=== PATIENT | female | born 1960 | race Caucasian/White ===

== ENCOUNTER → 2017-04-25 | Day surgery (SDC) | payer OTHER ==
[2017-04-23 09:18] VITALS: Ht 170.2 cm; Wt 72.7 kg
--- NOTE | 2017-04-24 15:19 | History and Physical: Surg Cnt ---
History & Physical Date Apr 24, 2017. Chief Complaint sinus infections History of Present Illness The patient is a 56 year old female with complaints of chronic sinusitis Additional History Hepatic Disease: No Endocrine Disorder: No Kidney Disease: No Hypertension: No Heart Disease: No Bleeding Tendencies: No Infectious Diseases: No Allergies Coded Allergies: Penicillins (Verified Allergy, Unknown, SWELLING, 04/23/17) Sulfa Antibiotics (Verified Allergy, Unknown, HIVES, 04/23/17) Adhesives (Verified Adverse Reaction, Unknown, REDNESS AND ITCHING, ) Hydrochlorothiazide (Unverified Adverse Reaction, Unknown, LOWERS SODIUM LEVELS, 04/23/17) Ibuprofen (Unverified Adverse Reaction, Unknown, CANNOT TAKE R/T GASTRIC BYPASS, 04/23/17) Home Medications Scheduled Aripiprazole (Abilify), 1 TAB PO HS Ascorbic Acid (Vitamin C), 1 TAB PO QAM B-Complex W/ Folic Acid (B Complex), 1 TAB PO DAILY Benztropine Mesylate (Cogentin), 1 MG PO HS Calcium Carbonate-Vitamin D (Calcium + D), 1 TAB PO DAILY Doxepin (Sinequan), 25 MG PO TID Duloxetine HCl (Cymbalta), 1 CAP PO HS Duloxetine Hcl (Cymbalta), 60 MG PO QAM Ferrous Sulfate (Iron), 1 TAB PO DAILY Fluticasone Propionate (Nasal) (Flonase Allergy Relief), 1 SPRAY TOMMY DAILY Gabapentin (Neurontin), 100 MG PO QID Hydroxyzine Pamoate (Vistaril), 1 CAP PO TID Lansoprazole (Prevacid), 30 MG PO QAM Levothyroxine Sodium (Synthroid), 50 MCG PO QAM Pediatric Multiple Vitamin W/ (Childrens Chewable Vitamin), 1 CHW PO DAILY Polyethylene Glycol-Propylene (Systane), 1 DROPS OP BID Primidone (Mysoline), 50 MG PO BID Ranitidine (Zantac), 300 MG PO HS Saline (Saline Nasal Clarinda), 1 SPRAY TOMMY DAILY Vortioxetine HBr (Trintellix), 1 TAB PO HS Scheduled PRN Albuterol Hfa (Ventolin Hfa), 2-4 PUFFS INH Q6H PRN for SOB/Wheezing Diphenoxylate/Atropine (Lomotil), 1 TAB PO UD PRN for Diarrhea Docusate Sodium (Colace), 1 CAP PO BID PRN for Constipation Physical Examination Skin: warm/dry, no rash Eyes: normal inspection, EOMI, sclerae normal ENT: normal ENT inspection, pharynx normal Head: normocephalic, atraumatic Neck: supple, no adenopathy, trachea midline Respiratory/Chest: lungs clear, normal breath sounds, no respiratory distress Cardiovascular: regular rate, rhythm, no edema, no murmur Abdomen / GI: normal bowel sounds, non tender Back: normal inspection Extremities: normal inspection, normal range of motion Neurologic/Psych: no motor/sensory deficits, alert, normal reflexes, oriented x 3 Diagnosis chronic sinusitis Plan of Treatment endoscopic sinus surgery
[~2017-04-25] VITALS: Ht 170.2 cm; Wt 72.7 kg
[~2017-04-25] MED LIST: ABL10 PO; ASCO100T4 PO; ATROPINE SULFATE 0.1 MG/ML 5ML SYR IV PRN; B-COTAB53 PO; BACITRACIN OINT 15 GM TUBE ONE; BENZ-89 PO; CALC600T9 PO; CEFAZOLIN 1000MG IV PUSH 5 ML IV SCH; DEXAMETHASONE SOD INJ 4 MG/ML VIAL ONE; DIPH-416 PO; DOCU-94 PO; DULO-24 PO; DULO60CA44 PO; EpHEDrine SULFATE INJ 50 MG/ML AMP IV PRN; EpINEphrine INJ 1MG/ML AMP 1 MG/ML AMP ONE; FENTANYL CITRATE INJ 50 MCG/1 ML 2 ML VIAL IV PRN; FENTANYL CITRATE INJ 50 MCG/1 ML 2 ML VIAL ONE; FERR1TAB23 PO; FLUT0.15 NAE; GABA-112 PO; GELATIN SPONGE 12-7MM ONE; HYDR50CA PO; LACTATED RINGER'S 1000ML 1,000 ML IV SCH; LANS30CA12 PO; LEVO50TA PO; LIDO 2%/EPINEPHRINE 1:100000 20 ML VIAL INFIL ONE; LIDOCAINE 4% MPF SOAK 5 ML = 1 DOSE TOP ONE; LIDOCAINE HCL 2% 2 ML VIAL (20MG/ML) ONE; MIDAZOLAM HCL 1 MG/ML 2ML VIAL ONE; ONDA4TAB65 PO; ONDANSETRON INJ 2 MG/ML 2 ML VIAL ONE; OXYC-57 PO; OXYCODONE/ACETAMINOPHEN 5-325 TAB PO PRN; PEDICHW19 PO; POLYSOL4 OP; PRIM50TA29 PO; PROPOFOL IV EMULSION 10 MG/ML 20 ML VIAL IV ONE; RANI300T2 PO; SALI1SPR3 NAE; SNQ/25 PO; SODIUM CHLORIDE 0.9% 1000ML 1,000 ML IV SCH; VNTHFA/IN INH; VORT1TAB3 PO
--- NOTE | 2017-04-25 08:28 | Discharge Instructions-SurgCtr ---
Discharge Instructions Date of Service Apr 25, 2017. Visit Reason for Visit: Chronic Tonsilitis Discharge Discharge Diagnosis / Problem: same Discharge Goals Goal(s): Improve disease control Medications Stopped Medications Name(s): ibuprofen stopped. last dose on saturday. Activity Recommendations Activity Limitations: resume your previous activity Anesthesia . Post Anesthesia Instructions: If you have had General Anesthesia or IV Sedation: * Do not drive today. * Resume driving when surgeon permits. * Do not make important decisions or sign legal documents today. * Call surgeon for: 1. Temperature elevations greater than 101 degrees F. 2. Uncontrollable pain. 3. Excessive bleeding. 4. Persistent nausea and vomiting. 5. Medication intolerance (nausea, vomiting or rash). * For nausea and vomiting use only clear liquids such as: tea, soda, bouillon until nausea subsides, then gradually increase diet as tolerated. * If you have any concerns or questions, call your surgeon's office. If physician is unavailable and it is an emergency, call 911 or go to the nearest emergency room. . Instructions / Follow-Up Instructions / Follow-Up ACTIVITY RECOMMENDATIONS: * Being up and around is good, but no strenuous activity, heavy lifting or physical exertion for one week. * Keep your head elevated 30 degrees when lying down or sleeping. * Do not blow your nose for 48 hours, sniff back instead. * Avoid hot showers. OVER THE COUNTER MEDICATIONS: * You may use Tylenol * Avoid aspirin or aspirin containing products, e.g. as they may increase bleeding. SPECIAL CARE INSTRUCTIONS: * Expect to have bloody drainage from your nose and/or down your throat for one to three days. Change drip pad as needed. * Begin irrigating your nose with saline solution today, at least six to ten times per day and sniff back to help remove old clots or crust. * You may experience nasal and facial congestion, pain and pressure, this is normal. * Please call with any significant and/or progressive pain, redness, swelling around the eyes, visual changes, fever of 101.5 degrees F, active bleeding or any problems or concerns. * If active bleeding occurs, spray the nose three times at one minute intervals with Afrin spray and call or cell phone: . If unable to reach the doctor, go to the nearest Emergency Department. Special Diet: * Avoid extremely hot fluids. FOLLOW UP VISIT: Follow-up Visit with Dr. Shah If not already scheduled, please call to schedule. Diet Recommendations Home Diet: no limitations Pending Studies Studies pending at discharge: no Medical Emergencies . Who to Call and When: Medical Emergencies: If at any time you feel your situation is an emergency, please call 911 immediately. . Non-Emergent Contact Non-Emergency issues call your: Primary Care Provider . . "Provider Documentation" section prepared by Amber Shah. . [place] Drug Monitoring Program Search Results: no issues identified
--- NOTE | 2017-04-25 08:50 | History & Physical Bridge Note ---
H&P Re-Evaluation Bridge Note: I have examined the patient, reviewed the History & Physical and in the interval since the performance of the History & Physical I have noted the following changes of clinical significance: No changes noted
--- NOTE | 2017-04-25 09:55 | [facility] Post Operative Brief Note ---
Immediate Operative Summary Operative Date Apr 25, 2017. Pre-Operative Diagnosis Chronic Sinusitis Post-Operative Diagnosis Same; Deviated Septum Procedure(s) Performed Endoscopic Sinus Surgery with [employer] Navigation, Right and Left Frontal Sinus , Right and Left Total Ethmoidectomies, Right and Left Maxillary; Septoplasty Surgeon Dr. Shah Managed Care Liaison Surgeon(s) None Estimated Blood Loss 30 mL Findings sinusitis Specimens A. Left Maxillary Sinus Mucosa B. Right Maxillary Sinus Mucosa Anesthesia GET Complication(s) None Disposition Recovery Room / PACU
--- NOTE | 2017-04-25 10:30 | Anesthesia Progress Nt - [facility] ---
Anesthesia Post Op Note Date & Time Apr 25, 2017 at 10:30 Vital Signs Pain Intensity: 0 Vital Signs Past 12 Hours Date Time Temp Pulse Resp B/P (MAP) Pulse Ox O2 Delivery O2 Flow Rate FiO2 04/25/17 10:01 36.4 93 16 148/96 100 Diffusion Mask 5 04/25/17 08:03 36.9 91 18 144/88 (106) 96 Room Air Notes Mental Status: alert / awake / arousable, participated in evaluation Pt Amnestic to Procedure: Yes Nausea / Vomiting: adequately controlled Pain: adequately controlled Airway Patency, RR, SpO2: stable & adequate BP & HR: stable & adequate Hydration State: stable & adequate Anesthetic Complications: no major complications apparent
[2017-04-25 10:46] VITALS: TEMP 36.7
--- NOTE | 2017-04-25 10:48 | OPERATIVE REPORT ---
DATE OF OPERATION: 04/25/2017 PREOPERATIVE DIAGNOSIS: Chronic sinusitis. POSTOPERATIVE DIAGNOSES: Same plus septal spur to the left. PROCEDURE: Right and left frontal sinusotomy, right and left total ethmoidectomy, right and left maxillary sinus antrostomy with endoscopic septoplasty. SURGEON: Dr. Shah. ANESTHESIA: General endotracheal. COMPLICATIONS: None. BLOOD LOSS: 30 mL. HISTORY: A 56-year-old lady who had endoscopic surgery by hi 8 years ago, did well until the last 2 years when she again developed recurrent chronic sinusitis. She is a chronic smoker. OPERATION AND FINDINGS: PROCEDURE: The patient brought to the operating room and placed in supine position. General endotracheal anesthesia was induced, prepped, draped in usual sterile manner. Nose decongested using cottonoids with topical solution of 4 mL of 4% Xylocaine mixed with 1 mL of epinephrine. Injection of 2% Xylocaine with 1:100,000 strength epinephrine was also used. The left nasofrontal duct was cannulated with guidewire and dilated using the 6 mm balloon with [employer] computer guidance. The guidewire was left in place as a marker. The frontal sinus was stenotic. Frontal sinusotomy was performed using the shaver coupled with the Qwilt device opening up the residual agger nasi cell, opening up the posterior wall of the residual agger nasi cell and then opening up the nasal frontal duct. The residual ethmoid air cells were also opened. The maxillary sinus was previously ballooned open; however, there was an accessory ostia just posterior to this by approximately less than 1 cm. Therefore, the natural ostia was connected to this accessory ostia using the biting type Blakesley forceps and also using the shaver coupled with the [employer] device. The right frontal sinusotomy, total ethmoidectomy, and maxillary sinus antrostomy performed in a similar manner. Endoscopic septoplasty was performed because of a large bony spur projecting to the left blocking the ostiomeatal complex. The incision was made over the spur using the 15 blade. Superior and inferior tunnels were elevated and then bilateral posterior tunnels were elevated around the bony spur which was removed using the Pine dissector and the Lorene forceps. The Propel stents were placed into the nasofrontal ducts and the septum was packed with a single piece of Gelfoam. The patient tolerated the procedure well and was taken to the recovery area in satisfactory condition. I attest to the content of the Intraoperative Record and any orders documented therein. Any exception s are noted below.
[2017-04-25 11:17] VITALS: BP 153/87; PULSE 90; O2SAT 97
== END | disposition home or self-care (01) ==
LOC: X.SURG 07:40
PROVIDERS: ATTEND Otolaryngology
DX: J32.9 Chronic sinusitis, unspecified (principal); J34.89 Other specified disorders of nose and nasal sinuses; I10 Essential (primary) hypertension; E78.5 Hyperlipidemia, unspecified; K21.9 Gastro-esophageal reflux disease without esophagitis; E03.9 Hypothyroidism, unspecified; I34.1 Nonrheumatic mitral (valve) prolapse; M19.90 Unspecified osteoarthritis, unspecified site; F41.9 Anxiety disorder, unspecified; Z85.3 Personal history of malignant neoplasm of breast; Z79.899 Other long term (current) drug therapy; F17.200 Nicotine dependence, unspecified, uncomplicated

== ENCOUNTER 2023-08-27 09:20 | Inpatient (IN) ==
--- NOTE | 2023-08-12 12:49 | PAT Medication Instructions ---
Medication Instructions Date of Service August 12, 2023 Home Medications Medication Instructions Recorded cyclosporine 0.05 % eye drops in a 1 drp ophthalmic (eye) Q12H #60 ea 11/19/22 dropperette (Restasis) naltrexone microspheres 380 mg 380 mg IM .COMPLEX #1 ea 11/19/22 intramuscular suspension,extended release (Vivitrol) propylene glycol-glycerin 0.6 1 drp ophthalmic (eye) QID #30 ea 11/19/22 %-0.6 % eye drops in a dropperette (Soothe Lubricant) primidone 50 mg tablet 50 mg PO BID #180 tabs 02/15/23 famotidine 20 mg tablet (Pepcid) 20 mg PO BID #60 tabs 04/30/23 lansoprazole 30 mg capsule,delayed 30 mg PO BID #60 caps 04/30/23 release (Prevacid) levothyroxine 75 mcg capsule 75 mcg PO QAM #30 caps 04/30/23 hydralazine 25 mg tablet 25 mg PO TID #270 tabs 06/18/23 budesonide-formoterol HFA 80 2 puff inhalation Q12H #10.2 grams 07/11/23 mcg-4.5 mcg/actuation aerosol inhaler (Symbicort) gabapentin 100 mg capsule 200 mg (2 x 100 mg) PO TID #180 08/01/23 caps Medication List: Budesonide 0.05% With Saline 1 spray intranasal HS acetaminophen 650 mg tablet,extended release (Tylenol Arthritis Pain) 1,300 mg PO TID PRN Pain albuterol sulfate 90 mcg/actuation aerosol inhaler 2 puff inhalation QID PRN Wheezing azelastine 205.5 mcg (0.15 %) nasal spray 2 spray intranasal BID calcium citrate 250 mg calcium-vitamin D3 5 mcg (200 unit) tablet 1 tab PO BID cholecalciferol (vitamin D3) 50 mcg (2,000 unit) capsule (Vitamin D3) 50 mcg PO QAM diphenhydramine HCl 25 mg capsule (Benadryl) 25 mg PO HS PRN Sleep doxepin 25 mg capsule 25 mg PO TID duloxetine 60 mg capsule,delayed release 60 mg PO QAM hydroxyzine HCl 50 mg tablet 50 mg PO TID linaclotide 145 mcg capsule (Linzess) 145 mcg PO QPM PRN Constipation mirtazapine 30 mg tablet 30 mg PO HS vitamin B complex 1 cap PO QAM vortioxetine 20 mg tablet (Trintellix) 20 mg PO HS cyclosporine 0.05 % eye drops in a dropperette (Restasis) 1 drp ophthalmic (eye) Q12H naltrexone microspheres 380 mg intramuscular suspension,extended release (Vivitrol) 380 mg IM .COMPLEX propylene glycol-glycerin 0.6 %-0.6 % eye drops in a dropperette (Soothe Lubricant) 1 drp ophthalmic (eye) QID biotin 1 mg capsule 1 mg PO QAM primidone 50 mg tablet 50 mg PO BID famotidine 20 mg tablet (Pepcid) 20 mg PO BID lansoprazole 30 mg capsule,delayed release (Prevacid) 30 mg PO BID levothyroxine 75 mcg capsule 75 mcg PO QAM hydralazine 25 mg tablet 25 mg PO TID aspirin 81 mg tablet 81 mg PO QAM atorvastatin 40 mg tablet (Lipitor) 40 mg PO QPM budesonide-formoterol HFA 80 mcg-4.5 mcg/actuation aerosol inhaler (Symbicort) 2 puff inhalation Q12H gabapentin 100 mg capsule 200 mg (2 x 100 mg) PO TID amlodipine 5 mg tablet 10 mg PO QAM ibuprofen 200 mg capsule 400 mg PO TID severe back pain lisinopril 40 mg tablet 40 mg PO QAM loratadine 10 mg tablet 10 mg PO QAM metoprolol succinate 25 mg tablet,extended release 24 hr 50 mg PO HS MEDICATION INSTRUCTIONS: Continue as directed Budesonide 0.05% With Saline 1 spray intranasal HS albuterol sulfate 90 mcg/actuation aerosol inhaler 2 puff inhalation QID PRN Wheezing (use if needed AM of surgery; BRING TO HOSPITAL) azelastine 205.5 mcg (0.15 %) nasal spray 2 spray intranasal BID budesonide-formoterol HFA 80 mcg-4.5 mcg/actuation aerosol inhaler (Symbicort) 2 puff inhalation Q12H naltrexone microspheres 380 mg intramuscular suspension,extended release (Vivitrol) 380 mg IM .COMPLEX propylene glycol-glycerin 0.6 %-0.6 % eye drops in a dropperette (Soothe Jennifer bricant) 1 drp ophthalmic (eye) QID cyclosporine 0.05 % eye drops in a dropperette (Restasis) 1 drp ophthalmic (eye) Q12H ASK your surgeon for instructions ibuprofen 200 mg capsule 400 mg PO TID severe back pain ASK your prescriber and surgeon aspirin 81 mg tablet 81 mg PO QAM STOP taking 2 weeks before surgery biotin 1 mg capsule 1 mg PO QAM DO NOT take the morning of surgery cholecalciferol (vitamin D3) 50 mcg (2,000 unit) capsule (Vitamin D3) 50 mcg PO QAM vitamin B complex 1 cap PO QAM lisinopril 40 mg tablet 40 mg PO QAM loratadine 10 mg tablet 10 mg PO QAM hydroxyzine HCl 50 mg tablet 50 mg PO TID calcium citrate 250 mg calcium-vitamin D3 5 mcg (200 unit) tablet 1 tab PO BID Take morning of surgery With a small sip of water, OTHERWISE NOTHING TO EAT OR DRINK AFTER MIDNIGHT: gabapentin 100 mg capsule 200 mg (2 x 100 mg) PO TID hydralazine 25 mg tablet 25 mg PO TID famotidine 20 mg tablet (Pepcid) 20 mg PO BID lansoprazole 30 mg capsule,delayed release (Prevacid) 30 mg PO BID acetaminophen 650 mg tablet,extended release (Tylenol Arthritis Pain) 1,300 mg PO TID PRN Pain (take if needed) levothyroxine 75 mcg capsule 75 mcg PO QAM amlodipine 5 mg tablet 10 mg PO QAM primidone 50 mg tablet 50 mg PO BID duloxetine 60 mg capsule,delayed release 60 mg PO QAM doxepin 25 mg capsule 25 mg PO TID Take evening before surgery atorvastatin 40 mg tablet (Lipitor) 40 mg PO QPM mirtazapine 30 mg tablet 30 mg PO HS vortioxetine 20 mg tablet (Trintellix) 20 mg PO HS metoprolol succinate 25 mg tablet,extended release 24 hr 50 mg PO HS gabapentin 100 mg capsule 200 mg (2 x 100 mg) PO TID hydralazine 25 mg tablet 25 mg PO TID famotidine 20 mg tablet (Pepcid) 20 mg PO BID lansoprazole 30 mg capsule,delayed release (Prevacid) 30 mg PO BID acetaminophen 650 mg tablet,extended release (Tylenol Arthritis Pain) 1,300 mg PO TID PRN Pain hydroxyzine HCl 50 mg tablet 50 mg PO TID calcium citrate 250 mg calcium-vitamin D3 5 mcg (200 unit) tablet 1 tab PO BID diphenhydramine HCl 25 mg capsule (Benadryl) 25 mg PO HS PRN Sleep linaclotide 145 mcg capsule (Linzess) 145 mcg PO QPM PRN Constipation primidone 50 mg tablet 50 mg PO BID doxepin 25 mg capsule 25 mg PO TID Other Notes If you have any questions please call us at [phone] or [phone] or [phone] or [phone]
--- NOTE | 2023-08-19 14:20 | Anesthesiology Consultation ---
Date of Service August 19, 2023 Assessment & Plan (1) Encounter for pre-operative examination: Chart Review Chart Review: Acceptable Risk for Surgery (pending cardio and PCP clearance ) and Patient seen in Pre Admission Testing - Awaiting cardio clearance 08/21/23 ([facility]) - Awaiting final PCP clearance ([place])- PCP awaiting preop testing and cardio clearance - workload note send to PCP (PCP awaiting cardio clearance 08/21/23) Positive antibodies on T&S- did speak with Blood Bank 08/20/23- recommended brining patient in an extra 1-2 hours early to do DOS T&S. OR informed/aware. - Check BSG AM DOS Right limb restriction Per PAT appt on 08/19/23, no recent illness/disease exposures, illness related symptoms, or recent illness/disease positive tests. Will leave to surgeon's discretion if preop Covid testing needed Patient seen by PCP 08/15/23= Patient seen for preop physical examination. Having PAT testing 08/19/23. Patient should keep cardiac clearance appt scheduled as well . Medical clearance pending normal testing and cardiac clearance. HTN- well controlled. Pt did see vascular surgery 06/25/23 and no evidence of LARA on duplex. Right index finger metacarpophalangeal arthroplasty 11/09/21= Done under [facility] with LMA #4 unique. Teaching & Discussion Pre-Anesthesia Teaching/Discussion Notes: Instructed NPO after midnight before surgery,except medications with 15 cc of water. Medication instructions provided according to the PAT guidelines. History Surgery Operation Date: 08/27/23 11:05 Proposed Procedures p L5-S1 Decompression and Fusion, Spinal Cord Monitoring - Tino Soni, Height/Weight Height: 5 ft 7 in Weight: 63.5 kg Allergies Allergy/AdvReac Type Severity Reaction Status Date / Time Penicillins Allergy Unknown SWELLING Verified 08/15/23 12:54 Sulfa (Sulfonamide Allergy Unknown HIVES Verified 08/15/23 12:54 Antibiotics) adhesive AdvReac Unknown REDNESS Verified 08/15/23 12:54 AND ITCHING hydrochlorothiazide AdvReac Unknown LOWERS Verified 08/15/23 12:54 SODIUM LEVELS ibuprofen AdvReac Unknown CANNOT Verified 08/15/23 12:54 TAKE R/T GASTRIC BYPASS Medications Home Medications Medication Instructions Recorded Confirmed Last Taken Budesonide 0.05% With Saline 1 spray intranasal HS 10/11/21 08/15/23 11/09/21 02:45 acetaminophen 650 mg 1,300 mg PO TID PRN Pain 10/11/21 08/15/23 11/08/21 10:00 tablet,extended release (Tylenol Arthritis Pain) albuterol sulfate 90 mcg/actuation 2 puff inhalation QID PRN Wheezing 10/11/21 08/15/23 11/09/21 02:45 aerosol inhaler azelastine 205.5 mcg (0.15 %) 2 spray intranasal BID 10/11/21 08/15/23 11/09/21 02:45 nasal spray cholecalciferol (vitamin D3) 50 50 mcg PO QAM 10/11/21 08/15/23 11/08/21 08:00 mcg (2,000 unit) capsule (Vitamin D3) diphenhydramine HCl 25 mg capsule 25 mg PO HS PRN Sleep 10/11/21 08/15/23 11/08/21 19:00 (Benadryl) doxepin 25 mg capsule 25 mg PO TID 10/11/21 08/15/23 11/09/21 02:45 duloxetine 60 mg capsule,delayed 60 mg PO QAM 10/11/21 08/15/23 11/09/21 02:45 release hydroxyzine HCl 50 mg tablet 50 mg PO TID 10/11/21 08/15/23 11/08/21 19:00 linaclotide 145 mcg capsule 145 mcg PO QPM PRN Constipation 10/11/21 08/15/23 11/08/21 17:00 (Linzess) mirtazapine 30 mg tablet 30 mg PO HS 10/11/21 08/15/23 11/08/21 21:00 vitamin B complex 1 cap PO QAM 10/11/21 08/15/23 11/08/21 08:00 vortioxetine 20 mg tablet 20 mg PO HS 10/11/21 08/15/23 11/08/21 19:00 (Trintellix) cyclosporine 0.05 % eye drops in a 1 drp ophthalmic (eye) Q12H #60 ea 11/19/22 08/15/23 Unknown dropperette (Restasis) naltrexone microspheres 380 mg 380 mg IM .COMPLEX #1 ea 11/19/22 08/15/23 Unknown intramuscular suspension,extended release (Vivitrol) propylene glycol-glycerin 0.6 1 drp ophthalmic (eye) QID #30 ea 11/19/22 08/15/23 Unknown %-0.6 % eye drops in a dropperette (Soothe Lubricant) primidone 50 mg tablet 50 mg PO BID #180 tabs 02/15/23 08/15/23 Unknown famotidine 20 mg tablet (Pepcid) 20 mg PO BID #60 tabs 04/30/23 08/15/23 Unknown lansoprazole 30 mg capsule,delayed 30 mg PO BID #60 caps 04/30/23 08/15/23 Unknown release (Prevacid) levothyroxine 75 mcg capsule 75 mcg PO QAM #30 caps 04/30/23 08/15/23 Unknown hydralazine 25 mg tablet 25 mg PO TID #270 tabs 06/18/23 08/15/23 Unknown aspirin 81 mg tablet 81 mg PO QAM 07/05/23 08/15/23 Unknown atorvastatin 40 mg tablet (Lipitor) 40 mg PO QPM 07/05/23 08/15/23 Unknown budesonide-formoterol HFA 80 2 puff inhalation Q12H #10.2 grams 07/11/23 08/15/23 Unknown mcg-4.5 mcg/actuation aerosol inhaler (Symbicort) gabapentin 100 mg capsule 200 mg (2 x 100 mg) PO TID #180 08/01/23 08/15/23 Unknown caps amlodipine 5 mg tablet 10 mg PO QAM 08/05/23 08/15/23 Unknown ibuprofen 200 mg capsule 400 mg PO TID severe back pain 08/05/23 08/15/23 Unkn own lisinopril 40 mg tablet 40 mg PO QAM 08/05/23 08/15/23 Unknown loratadine 10 mg tablet 10 mg PO QAM 08/05/23 08/15/23 Unknown metoprolol succinate 25 mg 50 mg PO HS 08/05/23 08/15/23 Unknown tablet,extended release 24 hr Past Medical History Medical History (Updated 08/21/23 @ 09:58 by Garima Londono PA-C) Alcoholism Rehab 2014 Relapse 2017 Was taking Vivitrol monthly- has been off Vivitrol since Jun 2023- no issues Relapse February 2022, sober since then Anxiety Follows with Yue at [facility] Rx Doxepin TID and Vistaril TID for panic attacks Breast cancer (~2003) s/p right breast lumpectomy and radiation; no chemo no current issues Chronic rhinitis Rx Astelin and liquid Budesonide in saline lavage (from ENT) Claustrophobia Depression Rx Trintellix Diabetes mellitus, type 2 Diet controlled, improved since weight loss Fibromyalgia Rx Cymbalta GERD (gastroesophageal reflux disease) EGD 03/09/20 well controlled and stablle Hereditary hemochromatosis Therapeutic Phlebotomy w/ [facility] (Dr Castellanos) Check blood work every three months History of IBS Linzess PRN Follows with [facility]/ [facility] HLD (hyperlipidemia) HTN (hypertension) Hypothyroidism Insomnia Rx Remeron at night for insomnia Lumbar radicular pain Right buttocks, radiates down back of leg Follows with [facility] L-Spine MRI (08/20/22) s/p right L5 TF JANNETTE (09/11/22) s/p physical therapy (09/17/22) 50-60% pain relief w/ injection and PT Right foot drop as of PAT appt 08/19/23 due to lumbar issues Migraine Ear piercing helped with migraines Mild intermittent asthma Rx Symbicort daily, CHRIS 1-2x/week [facility] Breathing stable SUAD (obstructive sleep apnea) unable to tolerate cpap Osteoarthritis Tobacco use disorder 1/2 PPD since age 16 Follows with Pulm Weight loss, unintentional PCP aware - stable per patient (has gastric bypass)- patient feels well Exercise / Class Metabolic Activity III < 4 Walking/Shop/Light housework (no chest pain or SOB with flat surface with ambulation ) Past Family History Family History Mother Family history of diabetes mellitus Other No family history of adverse response to anesthesia Past Surgical History Surgical History History of appendectomy History of cardiac cath (~11/12/19) coronary arteries angiographically normal, no stents History of carpal tunnel release L X 1-R X 3-4 History of cataract surgery R/L History of cholecystectomy History of colonoscopy History of esophagogastroduodenoscopy (EGD) History of gastric bypass (~2005) [facility], lost 200 lbs History of hand surgery Right thumb joint History of hysterectomy OFELIA and BSO History of laparoscopy multiple with adhesion removals History of lumpectomy of right breast 2003-RADIATION/NO CHEMO-RIGHT ARM RESTRICTION History of total knee replacement Left TKA and revision Hx of finger joint replacement right index finger Past Anesthesia History No Hx of Anesthesia Complications and No Family Hx of Anesthesia Complications History of PONV No Hx of PONV and No Hx of Motion Sickness Social History Smoking Status: Current every day smoker Smoking cigarettes per day: 20 CIGS A DAY (advised on policy) Do You Dip or Chew Tobacco: No Hx Alcohol Use: Yes (alcohol abuse) Alcohol Intake Frequency Comment: last drink 02/2022 Hx Substance Use: Yes substance use type: marijuana Last Used Substance Other:: 03/2023 (rare occasion) Review of Systems Patient denies chest pain, shortness of breath, dyspnea on exertion, cough, wheezing, palpitations. No hx of seizures, stroke, MO. No hx of blood clots or blood transfusions Physical Exam Vital Signs VITALS BP 152/80 P 83 TEMP 98.1 SP02 97% RESP 16 Constitutional no acute distress ENMT Mouth: no TMJ clicking Thyromental Distance: > or= 3.5 Finger Breadths (4.0) Mallampati Class: I Full dentures on top and bottom Neck neck extension not limited Respiratory normal respiratory effort; no respiratory distress Auscultation: lungs clear to auscultation bilaterally; no wheezes Cardiovascular Rate/Rhythm: regular rate and regular rhythm Heart Sounds: no murmur Vessels: no carotid bruit Musculoskeletal Spine: no pain with cervical ROM Extremities: extremities normal to inspection Psychiatric Orientation: alert Lab Results Anesthesia Preop Results Results Anesthesia Widget: WBC 10.46 K/ul (4.8-10.8) 08/19/23 Hgb 11.4 g/dl (12.0-16.0) L 08/19/23 Hct 33.7 % (37.0-47.0) L 08/19/23 Plt 347 K/uL (130-400) 08/19/23 Na 134 mmol/L (136-145) L 08/19/23 K 4.0 mmol/L (3.5-5.1) 08/19/23 Cl 105 mmol/L (98-107) 08/19/23 CO2 23 mmol/L (21-32) 08/19/23 BUN 13 mg/dl (6-23) 08/19/23 Creat 0.82 mg/dl (0.6-1.2) 08/19/23 Glucose Level 130 mg/dl (70-99(Fasting)) H 08/19/23 PT 9.7 Seconds (9.0-12.0) 08/19/23 PTT 30 Seconds (21-31) 08/19/23 INR 0.9 (0.9-1.1) 08/19/23 HA1c 7.8 % (4.5-5.6) H 08/19/23 Urine Color Yellow 08/19/23 Urine Appearance Clear (Clear) 08/19/23 Urine pH 5.5 (4.5-7.5) 08/19/23 Urine Specific [place] 1.008 (1.000-1.030) 08/19/23 Urine Protein Negative (Negative) 08/19/23 Urine Glucose (UA) Negative (Negative) 08/19/23 Urine Ketones Negative (Negative) 08/19/23 Urine Blood Negative (Negative) 08/19/23 Urine Nitrite Negative (Negative) 08/19/23 Urine Bilirubin Negative (Negative) 08/19/23 Urine Urobilinogen Negative (Negative) 08/19/23 Urine Leukocyte Esterase Negative (Negative) 08/19/23 Blood Type O Positive 08/19/23 Antibody Screen POSITIVE A 08/19/23 Testing Laboratory Results Positive antibodies with T&S- spoke with Blood Bank 08/20/23- will bring in patient 1-2 hours earlier than normal for repeat testing DOS Electrocardiogram Date: 08/19/23 Findings: + NSR @ (86bpm) Nonspecific ST abnormality Chest X-Ray Date: 08/19/23 Findings: + NAD FINDINGS: The lungs are clear. Cardiac silhouette is normal in size. No pleural effusions. No pneumothorax. Prior cholecystectomy. Epigastric surgical clips are also noted Echocardiogram Date: 04/18/23 EF: 60-64% LV Function: normal RWMA: + none Other Findings: no LVH or no diastolic dysfunction RV systolic function is normal. RV cavity is normal. Mild MR. Mild AR Cardiac Catheterization Date: 11/12/19 Coronary arteries are angiographically normal Recommendations: Right heart catheterization and coronary angiogram do not explain the patient's symptoms.
[~2023-08-27 09:20] MED LIST changes: -ABL10 PO; -ASCO100T4 PO; -ATROPINE SULFATE 0.1 MG/ML 5ML SYR IV PRN; -B-COTAB53 PO; -BACITRACIN OINT 15 GM TUBE ONE; -BENZ-89 PO; -CALC600T9 PO; -CEFAZOLIN 1000MG IV PUSH 5 ML IV SCH; -DEXAMETHASONE SOD INJ 4 MG/ML VIAL ONE; -DIPH-416 PO; -DOCU-94 PO; -DULO-24 PO; -DULO60CA44 PO; -EpHEDrine SULFATE INJ 50 MG/ML AMP IV PRN; -EpINEphrine INJ 1MG/ML AMP 1 MG/ML AMP ONE; -FENTANYL CITRATE INJ 50 MCG/1 ML 2 ML VIAL IV PRN; -FENTANYL CITRATE INJ 50 MCG/1 ML 2 ML VIAL ONE; -FERR1TAB23 PO; -FLUT0.15 NAE; -GABA-112 PO; -GELATIN SPONGE 12-7MM ONE; -HYDR50CA PO; -LACTATED RINGER'S 1000ML 1,000 ML IV SCH; -LANS30CA12 PO; -LEVO50TA PO; -LIDO 2%/EPINEPHRINE 1:100000 20 ML VIAL INFIL ONE; -LIDOCAINE 4% MPF SOAK 5 ML = 1 DOSE TOP ONE; -LIDOCAINE HCL 2% 2 ML VIAL (20MG/ML) ONE; -ONDA4TAB65 PO; -ONDANSETRON INJ 2 MG/ML 2 ML VIAL ONE; -OXYC-57 PO; -OXYCODONE/ACETAMINOPHEN 5-325 TAB PO PRN; -PEDICHW19 PO; -POLYSOL4 OP; -PRIM50TA29 PO; -PROPOFOL IV EMULSION 10 MG/ML 20 ML VIAL IV ONE; -RANI300T2 PO; -SALI1SPR3 NAE; -SNQ/25 PO; -SODIUM CHLORIDE 0.9% 1000ML 1,000 ML IV SCH; -VNTHFA/IN INH; -VORT1TAB3 PO; +fentaNYL citrate PF 100 MCG/2 ML VIAL ONE
[2023-08-27] MEDS: LR 15ML/HR IV SCH (09:45)
[2023-08-27] MEDS: LR 60ML/HR IV SCH (09:46)
[2023-08-27] MEDS: VANCOMYCIN HCL 1,000 MG/270 ML BAG IV SCH (10:07)
[2023-08-27] MEDS: ACETAMINOPHEN 500 MG TAB PO SCH (10:24)
[2023-08-27] MEDS ORDERED: ONDANSETRON INJ 2 MG/ML 2 ML VIAL IV PRN ×2 (10:31→14:49)
[2023-08-27] MEDS ORDERED: ePHEDrine sulfate 50 MG/ML AMP IV PRN (10:31)
[2023-08-27] MEDS ORDERED: ATROPINE SULFATE 0.1 MG/ML 10ML SYR IV PRN (10:31)
[2023-08-27] MEDS ORDERED: HYDROmorphone INJ 1 MG/ML SYRINGE IV PRN ×2 (10:31→14:49)
--- NOTE | 2023-08-27 11:06 | History & Physical Bridge Note ---
Date of Service August 27, 2023 History & Physical Bridge Note I have examined the patient, reviewed the History & Physical and in the interval since the performance of the History & Physical I have noted the following changes of clinical significance: no changes noted
--- NOTE | 2023-08-27 11:07 | History & Physical Report ---
Date of Service August 27, 2023 Assessment & Plan (1) Neurogenic claudication due to lumbar spinal stenosis: Plan: L5-S1 decompression and fusion History of Present Illness Chief Complaint: Back and leg pain Primary Care Provider: Era Pimentel DO This is a 63-year-old female who presents with chronic persistent back and leg pain and failing course of nonoperative care she is here for surgical invention. Allergies Allergy/AdvReac Type Severity Reaction Status Date / Time Penicillins Allergy Severe SWELLING Verified 08/27/23 09:56 Sulfa (Sulfonamide Allergy Severe HIVES Verified 08/27/23 09:56 Antibiotics) adhesive AdvReac Intermediate REDNESS Verified 08/27/23 09:56 AND ITCHING hydrochlorothiazide AdvReac Intermediate LOWERS Verified 08/27/23 09:56 SODIUM LEVELS ibuprofen AdvReac Mild CANNOT Verified 08/27/23 09:56 TAKE R/T GASTRIC BYPASS Home Medications Medication Instructions Recorded Confirmed Type Budesonide 0.05% With Saline 1 spray intranasal HS 10/11/21 08/27/23 History acetaminophen 650 mg 1,300 mg PO TID PRN Pain 10/11/21 08/27/23 History tablet,extended release (Tylenol Arthritis Pain) albuterol sulfate 90 mcg/actuation 2 puff inhalation QID PRN Wheezing 10/11/21 08/27/23 History aerosol inhaler azelastine 205.5 mcg (0.15 %) 2 spray intranasal BID 10/11/21 08/27/23 History nasal spray cholecalciferol (vitamin D3) 50 50 mcg PO QAM 10/11/21 08/27/23 History mcg (2,000 unit) capsule (Vitamin D3) diphenhydramine HCl 25 mg capsule 25 mg PO HS PRN Sleep 10/11/21 08/27/23 History (Benadryl) doxepin 25 mg capsule 25 mg PO TID 10/11/21 08/27/23 History duloxetine 60 mg capsule,delayed 60 mg PO QAM 10/11/21 08/27/23 History release (Cymbalta) hydroxyzine HCl 50 mg tablet 50 mg PO TID 10/11/21 08/27/23 History linaclotide 145 mcg capsule 145 mcg PO QPM PRN Constipation 10/11/21 08/27/23 History (Linzess) mirtazapine 30 mg tablet (Remeron) 30 mg PO HS 10/11/21 08/27/23 History vitamin B complex 1 cap PO QAM 10/11/21 08/27/23 History vortioxetine 20 mg tablet 20 mg PO HS 10/11/21 08/27/23 History (Trintellix) cyclosporine 0.05 % eye drops in a 1 drp ophthalmic (eye) Q12H #60 ea 11/19/22 08/27/23 Rx dropperette (Restasis) naltrexone microspheres 380 mg 380 mg IM .COMPLEX #1 ea 11/19/22 08/27/23 Rx intramuscular suspension,extended release (Vivitrol) propylene glycol-glycerin 0.6 1 drp ophthalmic (eye) QID #30 ea 11/19/22 08/27/23 Rx %-0.6 % eye drops in a dropperette (Soothe Lubricant) famotidine 20 mg tablet (Pepcid) 20 mg PO BID #60 tabs 04/30/23 08/27/23 Rx lansoprazole 30 mg capsule,delayed 30 mg PO BID #60 caps 04/30/23 08/27/23 Rx release (Prevacid) levothyroxine 75 mcg capsule 75 mcg PO QAM #30 caps 04/30/23 08/27/23 Rx hydralazine 25 mg tablet 25 mg PO TID #270 tabs 06/18/23 08/27/23 Rx aspirin 81 mg tablet 81 mg PO QAM 07/05/23 08/27/23 History atorvastatin 40 mg tablet (Lipitor) 40 mg PO QPM 07/05/23 08/27/23 History budesonide-formoterol HFA 80 2 puff inhalation Q12H #10.2 grams 07/11/23 08/27/23 Rx mcg-4.5 mcg/actuation aerosol inhaler (Symbicort) gabapentin 100 mg capsule 200 mg (2 x 100 mg) PO TID #180 08/01/23 08/27/23 Rx caps amlodipine 5 mg tablet (Norvasc) 10 mg PO QAM 08/05/23 08/27/23 History ibuprofen 200 mg capsule 400 mg PO TID severe back pain 08/05/23 08/27/23 History lisinopril 40 mg tablet (Zestril) 40 mg PO QAM 08/05/23 08/27/23 History loratadine 10 mg tablet 10 mg PO QAM 08/05/23 08/27/23 History metoprolol succinate 25 mg 50 mg PO HS 08/05/23 08/27/23 History tablet,extended release 24 hr primidone 50 mg tablet (Mysoline) 50 mg PO BID 08/27/23 08/27/23 History Past Med/Surg History Medical History (Updated 08/27/23 @ 11:06 by Tino Soni, DO) HLD (hyperlipidemia) HTN (hypertension) Claustrophobia Weight loss, unintentional PCP aware - stable per patient (has gastric bypass)- patient feels well Insomnia Rx Remeron at night for insomnia Fibromyalgia Rx Cymbalta Anxiety Follows with Yue at [facility] Rx Doxepin TID and Vistaril TID for panic attacks Alcoholism Rehab 2014 Relapse 2017 Was taking Vivitrol monthly- has been off Vivitrol since Jun 2023- no issues Relapse February 2022, sober since then Breast cancer (~2003) s/p right breast lumpectomy and radiation; no chemo no current issues Hereditary hemochromatosis Therapeutic Phlebotomy w/ [facility] (Dr Castellanos) Check blood work every three months Lumbar radicular pain Right buttocks, radiates down back of leg Follows with [facility] L-Spine MRI (08/20/22) s/p right L5 TF JANNETTE (09/11/22) s/p physical therapy (09/17/22) 50-60% pain relief w/ injection and PT Right foot drop as of PAT appt 08/19/23 due to lumbar issues Chronic rhinitis Rx Astelin and liquid Budesonide in saline lavage (from ENT) Tobacco use disorder 1/2 PPD since age 16 Follows with Pulm Mild intermittent asthma Rx Symbicort daily, CHRIS 1-2x/week Follows with [facility] Breathing stable SUAD (obstructive sleep apnea) unable to tolerate cpap Osteoarthritis History of IBS Linzess PRN Follows with Erma Pitt w/ [facility] GERD (gastroesophageal reflux disease) EGD 03/09/20 well controlled and stablle Diabetes mellitus, type 2 Diet controlled, improved since weight loss Hypothyroidism Depression Rx Trintellix Migraine Ear piercing helped with migraines Surgical History History of laparoscopy multiple with adhesion removals Hx of finger joint replacement right index finger History of hand surgery Right thumb joint History of total knee replacement Left TKA and revision History of cataract surgery R/L History of carpal tunnel release L X 1-R X 3-4 History of hysterectomy OFELIA and BSO History of cholecystectomy History of appendectomy History of esophagogastroduodenoscopy (EGD) History of gastric bypass (~2005) [facility], lost 200 lbs History of colonoscopy History of lumpectomy of right breast 2004-RADIATION/NO CHEMO-RIGHT ARM RESTRICTION History of cardiac cath (~11/12/19) coronary arteries angiographically normal, no stents Family History Mother Family history of diabetes mellitus Other No family history of adverse response to anesthesia Social History Smoking Status: Current every day smoker Tobacco Type: Cigarettes Cigarettes Per Day: 20 CIGS A DAY (advised on policy); Second Hand Exposure: Yes; Do You Dip or Chew Tobacco: No; Tobacco Cessation Education Requested by Patient: No Hx Alcohol Use: Yes (alcohol abuse) Hx Substance Use: Yes Last Used Substance Other:: 03/2023 (rare occasion) Preferred Language: Uzbek Communication Ability: Effective Visual Impairment: No Limitations M[employer] Inspector Required: No Beliefs That Will Affect Care: None Current Living Situation: Alone current occupational status: disabled Other Information That Helps Us Care for You: No Feels Safe at Home: Yes Safety Concerns: Feels Safe At This Time Assistive Devices: Denture - Upper, Denture - Lower and Glasses Physical Exam Physical Exam: Patient is alert and oriented Heart regular in rhythm Lungs clear Results & Data Results & Data Vital Signs (Past 12 Hours) Vital Signs Temp Pulse Resp BP Pulse Ox O2 Del Method 08/27/23 10:08 36.9 C 69 20 135/62 98 Room Air
[2023-08-27] MEDS: GABAPENTIN 600 MG DOSE PO SCH (11:16)
[2023-08-27] MEDS ORDERED: diphenhydrAMINE 50 MG/ML VIAL ONE (11:59)
[2023-08-27] MEDS ORDERED: LIDOCAINE 2% 2 ML VIAL/AMP(20MG/ML) INFIL ONE (11:59)
[2023-08-27] MEDS ORDERED: PROPOFOL IV EMULSION 10 MG/ML 20 ML VIAL IV ONE (11:59)
[2023-08-27] MEDS ORDERED: GLYCOPYRROLATE 0.2 MG/ML VIAL ONE (11:59)
[2023-08-27] MEDS ORDERED: DEXAMETHASONE SOD INJ 4 MG/ML VIAL ONE (11:59)
[2023-08-27] MEDS ORDERED: ROCURONIUM BROMIDE 10 MG/ML 5 ML VIAL IV ONE (11:59)
[2023-08-27] MEDS ORDERED: ONDANSETRON INJ 2 MG/ML 2 ML VIAL ONE (11:59)
[2023-08-27] MEDS: BUPIVACAINE/EPINEPHRINE 0.25% 1:200,000 30 ML VIAL ONE (12:15)
--- OUTSIDE RECORDS SUMMARY | 2023-08-27 12:24 | External Medical Summary | Summary of Care ---
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 Name Role Phone Era Pimentel DO Primary Care Provider + Reason for Visit * Reason Comments Pre-op Clearance Encounter Details Date Type Department Care Team (Latest Contact Info) Description 08/21/2023 10:30 AM EDT Office Visit Cardiology, [place] [address] [facility] [place] [id number] Kim Lopez CRNP [address] [place] [address] Preoperative cardiovascular examination*; HTN, goal below 140/90; Mitral valve insufficiency, unspecified etiology; Pure hypercholesterolemia Allergies Active Allergy Reactions Criticality Noted Date Comments Hydrochlorothiazide 11/09/2021 Other reaction(s): LOWERS SODIUM LEVELS Penicillins Edema Other,Hives 05/02/2010 Keflex tolerated PCN allergy as a child Sulfa Antibiotics Hives 06/03/2007 hives documented as of this encounter (statuses as of 08/21/2023) Medications Medication Sig Dispensed Refills Start Date End Date Status CALCIUM 600+D 600-400 MG-UNIT PO TABS Take 1 Tab by mouth 2 times a day. 0 Active B COMPLEX PO TABS Take 1 Tablet by mouth in the morning. 0 Active doxepin (SINEQUAN) 25 MG CapsuleIndications: txt anxiety Take 1 Capsule by mouth in the morning and 1 Capsule at noon and 1 Capsule before bedtime. 0 Active saline (EQL SALINE NASAL SPRAY) 0.65 % nasal spray [place] each nostril 3-4 times daily 30 mL 12 03/14/2016 Active Denture Care Products (FIXODENT COMPLETE) CREA Use as directed. 0 Acti ve diphenhydrAMINE HCl 25 MG Oral Capsule Take 1 Capsule by mouth every 6 hours as needed for Itching. 0 Active Wheat Dextrin (BENEFIBER) powder Take by mouth daily. 0 Active Simethicone 80 MG Oral Tablet Chewable Take 1 Tablet by mouth every 6 hours as needed. Milanta. 0 Active hydrOXYzine pamoate (VISTARIL) 50 MG Capsule Take 1 Capsule by mouth in the morning and 1 Capsule at noon and 1 Capsule before bedtime. 0 11/19/2018 Active Incontinence Supply Disposable (ALWAYS DISCREET) PADS Use as directed as needed for Diarrhea. 0 Active Blood Glucose Monitoring Suppl (EQO) w/Device KITIndications:Type 2 diabetes mellitus with hemoglobin A1c goal of less than 7.0% (HCC) Use up to 4 times a day E11.9 1 Kit 0 02/04/2019 Active Additional Information Patient not taking.Reported on 07/02/2023 VeeqoCRUZ CUEVAS 33G MISCIndications:Typ e 2 diabetes mellitus with hemoglobin A1c goal of less than 7.0% (HCC) Use up to 4 times a day E11.9 100 Each 11 02/04/2019 Active Additional Information Patient not taking.Reported on 07/02/2023 Acetaminophen ER 650 MG TBCR Take 1 Tablet by mouth every 8 hours as needed for Fever. Pt states she is taking 4 tabs twice daily 0 Active DULoxetine (CYMBALTA) 60 MG CPEP Take 1 Capsule by mouth in the morning. 0 06/30/2019 Active Loperamide HCl 2 MG Oral Capsule (IMODIUM)Indication s:Diarrhea, unspecified type Take 1 Cap by mouth 4 times a day as needed for Diarrhea. 40 Cap 2 02/23/2020 Active Vitamin D3 25 MCG (1000 UT) Oral Tablet (VITAMIN D3) Take 1 Tablet by mouth in the morning. 0 Active Diphenoxylate-Atrop ine 2.5-0.025 MG Oral Tablet (Lomotil) TAKE ONE TABLET BY MOUTH FOUR TIMES DAILY NEEDED FOR diarrhea 40 Tab 1 11/29/2020 Active Soothe 0.6-0.6 % Ophthalmic Solution (Propylene Glycol-Glycerin) Instill 1 Drop into both eyes 3 times a day. 0 Active Mirtazapine 30 MG Oral Tablet Take 1 Tablet by mouth at bedtime. 30 Tablet 5 07/19/2021 Active Budesonide 0.5 MG/2ML Inhalation Suspension (Pulmicort) Add 2 mL to saline rinse and perform nasal saline irrigation daily as directed 60 mL 12 09/26/2021 Active OneTouch Verio In Vitro Strip (Glucose Blood)Indications:T ype 2 diabetes mellitus with hemoglobin A1c goal of less than 7.0% ([facility]) USE UP TO FOUR TIMES DAILY 400 Strip 3 10/16/2021 Active Additional Information Patient not taking.Reported on 07/02/2023 Symbicort 80-4.5 MCG/ACT Inhalation Aerosol (budesonide-formote rol)Indications:Mil d intermittent asthma without complication inhale 2 puffs BY MOUTH 2 times a day - must be brand name 10.2 g 12 03/20/2022 Active linaCLOtide 145 MCG Oral Capsule (Linzess)Indication s:Chronic constipation Take 1 Capsule by mouth daily before breakfast. 90 Capsule 3 06/05/2022 Active Additional Information Patient taking differently:145 mcg OralDAILY PRN, Reported on 06/13/2023 Primidone 50 MG Oral Tablet (Mysoline) TAKE ONE TABLET BY MOUTH IN THE MORNING AND TAKE ONE TABLET AT BEDTIME 60 Tablet 5 07/20/2022 Active Azelastine HCl 0.1 % Nasal Solution (Astelin) USE 2 sprays IN EACH NOSTRIL TWICE DAILY 30 mL 5 07/24/2022 Active Trintellix 20 MG Oral Tablet TAKE 1 TABLET BY MOUTH AT bedtime WITH a meal 0 08/02/2022 Active Restasis 0.05 % Ophthalmic Emulsion Instill 1 Drop into both eyes in the morning and 1 Drop before bedtime. 60 mL 11 08/15/2022 Active Naltrexone HCl 50 MG Oral Tablet (Revia) Take 0.5 Tablets by mouth daily as needed for Other. As needed for EtOH craving when unable to vivitrol shot. 0 08/20/2022 Active Vivitrol 380 MG Intramuscular Suspension Reconstituted (naltrexone depot) Inject into a large muscle Every Month. Patient unsure of dose. 0 Active Levothyroxine Sodium 75 MCG Oral Tablet (Levoxyl) TAKE 1 TABLET DAILY (AT least 30 MINUTES prior TO breakfast OR other meds) 90 Tablet 1 09/12/2022 Active Famotidine 20 MG Oral Tablet (Pepcid)Indications :Gastroesophageal reflux disease without esophagitis TAKE ONE TABLET BY MOUTH TWICE DAILY 180 Tablet 1 09/12/2022 Active Lansoprazole 30 MG Oral Capsule Delayed Release (Prevacid) TAKE 1 CAPSULE BY MOUTH 2 times a day 180 Capsule 1 09/12/2022 Active Albuterol Sulfate (2.5 MG/3ML) 0.083% Inhalation Nebulization Solution (Proventil)Indicati ons:Mild intermittent asthma without complication Inhale 1 Vial via nebulizer every 4 hours as needed for Wheezing. 300 mL 1 10/02/2022 Active Loratadine 10 MG Oral Tablet (Claritin)Indicatio ns:Seasonal allergic rhinitis due to pollen Take 1 Tablet by mouth in the morning. 30 Tablet 5 10/02/2022 Active Naproxen 500 MG Oral Tablet (Naprosyn)Indicatio ns:Swelling of joint Take 1 Tablet by mouth 2 times a day as needed for Pain. With food 60 Tablet 0 10/24/2022 Active Additional Information Patient not taking.Reported on 08/21/2023 amLODIPine Besylate 5 MG Oral Tablet (Norvasc) Take 2 Tablets by mouth in the morning. 0 12/24/2022 Active Albuterol Sulfate HFA 108 (90 Base) MCG/ACT Inhalation Aerosol SolutionIndications :Mild intermittent asthma without complication TAKE 2 puffs BY MOUTH EVERY 4 HOURS NEEDED FOR wheezing 18 g 5 01/21/2023 Active Lisinopril 40 MG Oral Tablet Take 1 Tablet by mouth in the morning. 0 01/30/2023 Active Metoprolol Succinate ER 25 MG Oral Tablet Extended Release 24 Hour (toPROL XL) Take 2 Tablets by mouth every night at bedtime. 0 Active hydrALAZINE HCl 25 MG Oral Tablet (Apresoline) Take 1 Tablet by mouth in the morning and 1 Tablet at noon and 1 Tablet before bedtime. 0 02/16/2023 Active Aspirin 81 MG Oral Tablet Delayed Release Take 1 Tablet by mouth in the morning. 90 Tablet 3 06/13/2023 Active Atorvastatin Calcium 40 MG Oral Tablet (Lipitor) Take 1 Tablet by mouth in the morning. 90 Tablet 3 06/13/2023 Active Gabapentin 100 MG Oral Capsule (Neurontin) Take 2 Capsules by mouth in the morning and 2 Capsules at noon and 2 Capsules before bedtime. 0 08/01/2023 Active Hospital, Clinic, or Other Facility Administered Medication Ordered Dose Route Frequency Start Date End Date Status Albuterol Sulfate (Proventil) (2.5 MG/3ML) 0.083% inhalation solution 2.5 mgIndications:Mild intermittent asthma without complication 2.5 mg NEBULIZER PRN 11/06/2022 11/06/2023 Acti ve Albuterol Sulfate (Proventil) (5 MG/ML) 0.5% *conc* inhalation solution 2.5 mgIndications:Mild intermittent asthma without complication 2.5 mg NEBULIZER PRN 11/06/2022 11/06/2023 Acti ve documented as of this encounter (statuses as of 08/21/2023) Active Problems Problem Noted Date Diagnosed Date Food insecurity 08/20/2022 Overview: Per [facility] Protocol Liver fibrosis 06/13/2022 Paroxysmal atrial fibrillation 06/13/2022 Hereditary hemochromatosis 11/02/2021 Pseudophakia 07/17/2021 Alcohol dependence, uncomplicated 07/17/2021 Acute on chronic heart failu re with preserved ejection fraction (HFpEF) 02/19/2021 Type 2 diabetes mellitus with hyperglycemia 01/2021 Disease of lung 07/19/2020 Cyst of kidney, acquired 07/19/2020 Callus 07/19/2020 LGSIL Pap smear of vagina 03/25/2020 SUAD (obstructive sleep apnea) 01/27/2020 COPD, group D, by GOLD 2017 classification 07/19 Overview: Per COPD GOLD Classification Internal hernia 07/07/2019 Recurrent major depressive disorder, in partial remission 05/25/2019 Hyperlipidemia, unspecified 05/25/2019 Gastro-esophageal reflux disease without esophag itis 05/25/2019 Type 2 diabetes mellitus wit h diabetic neuropathy, unspecified 06/10/2018 Non-allergic rhinitis 02/19/2018 Alcoholic polyneuropathy 11/14/2017 Controlled substance agreement signed 06/30/2015 History of alcohol abuse 08/20/2014 Abnormality of gait 04/02/2014 Mediastinal adenopathy 04/02/2014 Overview: Per Dr. Peguero - needs [address] S/P total knee arthroplasty 04/01/2014 HTN, goal below 140/90 03/09/2014 Advance directive on file 11/24/2013 Overview: No, Advance Directive brochure offered, patient declined. 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 Acquired hypothyroidism 06/03/2007 Gastric bypass status for obesity documented as of this encounter (statuses as of 08/21/2023) Resolved Problems Problem Noted Date Diagnosed Date Resolved Date Neuropathy 05/17/2021 05/17/2021 Overview: likely from previous diabetes Hypokalemia 03/03/2021 03/03/2021 Pneumonitis 02/19/2021 03/03/2021 Acute respiratory failure with hypoxia 02/18/2021 03/03/2021 Ground glass opacity present on imaging of lung 02/18/2021 03/03/2021 Bilateral pneumonia 02/18/2021 03/03/20 21 Sepsis 02/18/2021 02/23/2021 Atrial fibrillation 01/26/2021 08/01/19 23 Body mass index (BMI) of 40. 0 to 44.9 in adult 12/19/2020 02/23/2021 Overview: Per Obesity protocol Postsurgical malabsorption, not elsewhere classified 07/19/2020 05/17/2021 Instability of left knee joint 07/19/2020 01/26/2021 Retinal hemorrhage of left eye 07/19/2020 05/17/2021 Mixed simple and mucopurulen t chronic bronchitis 06/20/2020 01/26/2021 Preoperative cardiovascular examination 12/03/2019 08/29/2020 Oral thrush 09/15/2019 01/26/2021 COPD (chronic obstructive pu lmonary disease) with acute bronchitis 05/25/2019 01/26/2021 COPD, group C, by GOLD 2017 classification 03/23/2019 07/23/2019 Overview: Per COPD GOLD Classification Chronic obstructive pulmonary disease 11/14/2017 03/27/2019 Overview: Per COPD GOLD Classification Alcohol dependence, uncomplicated 11/14/2017 05/25/2019 Recurrent major depressive d isorder, in full remission 11/14/2017 05/25/2019 [employer] demyelination 11/14/2017 05/25/2019 Sacroiliitis, not elsewhere classified 11/14/2017 05/17/2021 Intestinal infection due to Aeromonas hydrophila 07/29/2017 01/26/2021 Major depressive disorder, recurrent 12/16/2016 12/19/2016 Acute alcohol intoxication 12/16/2016 0 01/08/2017 Alcohol dependence, continuous 12/16/2016 12/19/2016 Lower abdominal pain 10/24/2015 017 Diverticulosis of large inte julio without hemorrhage 09/29/2015 01/26/2021 Joint pain 05/18/2015 08/29/2020 Anemia 04/02/2014 05/26/2019 Weakness generalized 04/02/2014 017 Post-op pain 04/02/2014 10/03/2016 [facility] resident 04/02/20142014 COPD, mild 04/02/2014 12/19/2016 Hypothyroidism 03/09/2014 04/02/2014 Type 2 diabetes mellitus wit h hemoglobin A1c goal of less than 7.0% 05/27/2013 12/19/2016 Overview: ICD-10 update of inactive term IFG (impaired fasting glucose) 12/02/2012 06/22/2014 Depression 12/17/2011 05/25/2019 Retention of urine 09/11/2011 4 Overview: ICD-10 update of inactive term Unspecified deficiency anemia 06/30/2019 documented as of this encounter (statuses as of 08/21/2023) Immunizations Name Administration Dates Next Due COVID-19 mRNA, LNP-s, No Pre serve, 2-Dose Series (Shipu) 04/01/2021,08/24/2020,08/01/2020 Covid-19, Mrna, Lnp-s, Pf, B ivalent, 30 Mcg, IM, 12 yrs and above (Shipu) 02/06/2022 HepA Inact/HepB Recomb>=18yrs old 07/31/2022 Hepatitis B, 20+ yrs 08/31/2022,06/01/19 15,12/25/2013,11/10 Pneumococcal Conjugate Vacc, 13 Valent (Prevnar) 06/11/2016 Pneumococcal Conjugate Vacci ne, 7 Valent 07/23/2013 Pneumococcal Polysaccharide PPV23 (Pneumovax) 02/23/2008 Seasonal Influenza Virus Vac cine, Unspecified Formulation 01/31/2023,01/18/2011,05/16/2010,06/2008,02/23/2008 Seasonal Influenza, PF, 6 M & above, IM , (FluLaval or Fluzone) 01/26/2022,01/24/2021,01/20/2020,07/2018,02/19/2018,03/11/2017 02/19/2019 Seasonal Influenza, Quadriva lent, No Preserve, IM 02/06/2016,02/23/2015 Seasonal Influenza, Split, I IV3, With Preserve, Inj 03/08/2014,01/21/2013,02/26/2012 TDAP (age 10 and older)(Boostrix) 10/24/2012 Zoster Vaccine Recombinant (Shingrix) 10/23/2019 ,07/23/2019 documented as of this encounter Social History Tobacco Use Types Packs/Day Years Used Date Smoking Tobacco: Every Day Cigarettes 0.5 43 Smokeless Tobacco: Never Tobacco Cessation:Ready to Q uit: Not Asked; Counseling Given: Not Answered Comments:1/2 ppd as of 08/21/23 Alcohol Use Standard Drinks/Week Comments No 0 (1 standard drink = 0.6 oz pur e alcohol) No alcohol since 06/2017 PHQ-2 Answer Date Recorded PHQ Adult Total Score 0 07/19/2020 Hunger Vital Sign Answer Date Recorded Within the past 12 months, y ou worried that your food would run out before you got the money to buy more. Sometimes true Within the past 12 months, t he food you bought just didn't last and you didn't have money to get more. Sometimes true Sex and Gender Information Value Date Recorded Sex Assigned at Female 09/03/2018 4:50 PM EDT Gender Identity Female 09/03/2018 4:50 PM EDT Sexual Orientation Straight 09/03/2018 4: 50 PM EDT Job Start Date Occupation Industry Not on file Not on file Not on file documented as of this encounter Last Filed Vital Signs Vital Sign Reading Time Taken Comments Blood Pressure 146/78 08/21/2023 10:05 AM EDT Pulse 58 08/21/2023 10:05 AM EDT Temperature - - Respiratory Rate - - Oxygen Saturation - - Inhaled Oxygen Concentration - - Weight 62.6 kg (138 lb) 08/21/2023 10:05 AM EDT Height 170.2 cm (5' 7") 08/21/2023 10:05 AM EDT Body Mass Index 21.61 08/21/2023 10:05 AM EDT documented in this encounter Functional Status Functional Status Response Date of Assess ment Are you deaf or do you have serious difficulty h earing? No 12/13/2020 Are you blind or do you have serious difficulty seeing, even when wearing glasses? No 02/19/2021 Do you have serious difficul ty walking or climbing stairs? (5 years old or older) Yes 02/20/2021 Do you have difficulty dress ing or bathing? (5 years old or older) No 02/19/2021 Because of a physical, menta l, or emotional condition, do you have difficulty doing errands alone such as visiting a doctor s office or shopping? (15 years old or older) No 02/20/20 Cognitive Status Response Date of Assessm ent Because of a physical, menta l, or emotional condition, do you have serious difficulty concentrating, remembering, or making decisions? (5 years old or older) No 02/19/2021 documented as of this encounter Progress Notes * Kim Lopez CRNP - 08/21/2023 10:30 AM EDT 08/21/2023 Cardiology Follow Up Primary [facility] Tanner: MARY, formerly Dr. Leiva Cardiac Problems: 1. HTN 2. T2 DM 3. Normal coronaries per cath 11/2019 4. Hypothyroidism 5. Hemachromatosis 6. HLD 7. COPD 8. Hepatomegaly 9. ? LARA HPI: Cata Diego is a 63 year old female presents preoperative cardiology clearance for lumbar spine surgery with Dr. Soni at [facility] on 08/27/23. Last seen in our office by Jenaro Vickers PA-C doing well from a cardiac standpoint. Patient presents today feeling well overall. Denies any change or decline in her functional capacity. Only complaint is chronic back pain so she is eager to have her surgery. She recently went to [facility] and had an EKG completed. Self reviewed. Demonstrates NSR with nonspecificST abnormality noted on prior EKGs. Rate 86bpm. BP high end of target. She was recently seen by vascular surgery because of an abnormal renal artery US suggestive of possible LARA. She underwent CTA of abdomen and pelvis which states bilateral renal arteries are patent. Most recent echo 04/2023 demonstrates normal LVEF, mild mitral and aortic insuffiencey. Stable. Reports compliance on all medication therapies with no untoward effects. REVIEW OF SYSTEMS: See HPI for pertinent positives. All others negative other than those noted in the HPI. CONSTITUTIONAL: No change in weight, No weakness, No fatigue and No fevers, No sweats or chills. PULMONARY: No cough, sputum, or hemoptysis, No wheezing, No shortness or breath and No recent change in breathing. CARDIOVASCULAR: No chest pain, No dyspnea on exertion, No edema, No palpitations and No syncope. GASTROINTESTINAL: No abdominal pain, No change in bowel habits, No significant heartburn, No nausea, No vomiting, No diarrhea, No constipation, No blood in stools or black tarry stools. No dysphagia. HEMATOLOGIC: No abnormal bleeding and No bruising. NEUROLOGICAL: Normal balance, No headaches and No weakness. Review of patient's allergies indicates: Allergen Reactions Hydrochlorothiazide Other reaction(s): LOWERS SODIUM LEVELS Pcn [Penicillins] Edema Other and Hives Keflex tolerated PCN allergy as a child Sulfa Antibiotics Hives hives Current Outpatient Medications Medication Sig Dispense Refill CALCIUM 600+D 600-400 MG-UNIT PO TABS Take 1 Tab by mouth 2 times a day. B COMPLEX PO TABS Take 1 Tablet by mouth in the morning. doxepin (SINEQUAN) 25 MG Capsule Take 1 Capsule by mouth in the morning and 1 Capsule at noon and 1Capsule before bedtime. saline (EQL SALINE NASAL SPRAY) 0.65 % nasal spray [place] each nostril 3-4 times daily 30 mL 12 diphenhydrAMINE HCl 25 MG Oral Capsule Take 1 Capsule by mouth every 6 hours as needed for Itching. Wheat Dextrin (BENEFIBER) powder Take by mouth daily. Simethicone 80 MG Oral Tablet Chewable Take 1 Tablet by mouth every 6 hours as needed. Milanta. hydrOXYzine pamoate (VISTARIL) 50 MG Capsule Take 1 Capsule by mouth in the morning and 1 Capsule at noon and 1 Capsule before bedtime. DULoxetine (CYMBALTA) 60 MG CPEP Take 1 Capsule by mouth in the morning. Loperamide HCl 2 MG Oral Capsule (IMODIUM) Take 1 Cap by mouth 4 times a day as needed for Diarrhea. 40 Cap 2 Vitamin D3 25 MCG (1000 UT) Oral Tablet (VITAMIN D3) Take 1 Tablet by mouth in the morning. Diphenoxylate-Atropine 2.5-0.025 MG Oral Tablet (Lomotil) TAKE ONE TABLET BY MOUTH FOUR TIMES DAILYAS NEEDED FOR diarrhea 40 Tab 1 Soothe 0.6-0.6 % Ophthalmic Solution (Propylene Glycol-Glycerin) Instill 1 Drop into both eyes 3 times a day. Mirtazapine 30 MG Oral Tablet Take 1 Tablet by mouth at bedtime. 30 Tablet 5 Budesonide 0.5 MG/2ML Inhalation Suspension (Pulmicort) Add 2 mL to saline rinse and perform nasal saline irrigation daily as directed 60 mL 12 Symbicort 80-4.5 MCG/ACT Inhalation Aerosol (budesonide-formoterol) inhale 2 puffs BY MOUTH 2 timesa day - must be brand name 10.2 g 12 linaCLOtide 145 MCG Oral Capsule (Linzess) Take 1 Capsule by mouth daily before breakfast. (Patienttaking differently: Take 1 Capsule by mouth daily as needed.) 90 Capsule 3 Primidone 50 MG Oral Tablet (Mysoline) TAKE ONE TABLET BY MOUTH IN THE MORNING AND TAKE ONE TABLET AT BEDTIME 60 Tablet 5 Azelastine HCl 0.1 % Nasal Solution (Astelin) USE 2 sprays IN EACH NOSTRIL TWICE DAILY 30 mL 5 Trintellix 20 MG Oral Tablet TAKE 1 TABLET BY MOUTH AT bedtime WITH a meal Restasis 0.05 % Ophthalmic Emulsion Instill 1 Drop into both eyes in the morning and 1 Drop before bedtime. 60 mL 11 Levothyroxine Sodium 75 MCG Oral Tablet (Levoxyl) TAKE 1 TABLET DAILY (AT least 30 MINUTES prior TObreakfast OR other meds) 90 Tablet 1 Famotidine 20 MG Oral Tablet (Pepcid) TAKE ONE TABLET BY MOUTH TWICE DAILY 180 Tablet 1 Lansoprazole 30 MG Oral Capsule Delayed Release (Prevacid) TAKE 1 CAPSULE BY MOUTH 2 times a day 180 Capsule 1 Albuterol Sulfate (2.5 MG/3ML) 0.083% Inhalation Nebulization Solution (Proventil) Inhale 1 Vial via nebulizer every 4 hours as needed for Wheezing. 300 mL 1 Loratadine 10 MG Oral Tablet (Claritin) Take 1 Tablet by mouth in the morning. 30 Tablet 5 amLODIPine Besylate 5 MG Oral Tablet (Norvasc) Take 2 Tablets by mouth in the morning. Albuterol Sulfate HFA 108 (90 Base) MCG/ACT Inhalation Aerosol Solution TAKE 2 puffs BY MOUTH EVERY4 HOURS NEEDED FOR wheezing 18 g 5 Lisinopril 40 MG Oral Tablet Take 1 Tablet by mouth in the morning. Metoprolol Succinate ER 25 MG Oral Tablet Extended Release 24 Hour (toPROL XL) Take 2 Tablets by mouth every night at bedtime. hydrALAZINE HCl 25 MG Oral Tablet (Apresoline) Take 1 Tablet by mouth in the morning and 1 Tablet at noon and 1 Tablet before bedtime. Aspirin 81 MG Oral Tablet Delayed Release Take 1 Tablet by mouth in the morning. 90 Tablet 3 Atorvastatin Calcium 40 MG Oral Tablet (Lipitor) Take 1 Tablet by mouth in the morning. 90 Tablet 3 Gabapentin 100 MG Oral Capsule (Neurontin) Take 2 Capsules by mouth in the morning and 2 Capsules at noon and 2 Capsules before bedtime. Denture Care Products (FIXODENT COMPLETE) CREA Use as directed. Incontinence Supply Disposable (ALWAYS DISCREET) PADS Use as directed as needed for Diarrhea. Blood Glucose Monitoring Suppl (EQO) w/Device KIT Use up to 4 times a day E11.9 (Patientnot taking: Reported on 07/02/2023) 1 Kit 0 Remotium DELAdama Materials LANCETS 33G MISC Use up to 4 times a day E11.9 (Patient not taking: Reported on 07/02/2023) 100 Each 11 Acetaminophen ER 650 MG TBCR Take 1 Tablet by mouth every 8 hours as needed for Fever. Pt states she is taking 4 tabs twice daily OneTouch Verio In Vitro Strip (Glucose Blood) USE UP TO FOUR TIMES DAILY (Patient not taking: Reported on 07/02/2023) 400 Strip 3 Naltrexone HCl 50 MG Oral Tablet (Revia) Take 0.5 Tablets by mouth daily as needed for Other. As needed for EtOH craving when unable to vivitrol shot. (Patient not taking: Reported on 08/21/2023) Vivitrol 380 MG Intramuscular Suspension Reconstituted (naltrexone depot) Inject into a large muscle Every Month. Patient unsure of dose. (Patient not taking: Reported on 08/21/2023) Naproxen 500 MG Oral Tablet (Naprosyn) Take 1 Tablet by mouth 2 times a day as needed for Pain. With food (Patient not taking: Reported on 08/21/2023) 60 Tablet 0 Current Facility-Administered Medications Medication Dose Route Frequency Provider Last Rate Last Admin Albuterol Sulfate (Proventil) (2.5 MG/3ML) 0.083% inhalation solution 2.5 mg 2.5 mg Nebulizer PRN Golden Leary PA-C Albuterol Sulfate (Proventil) (5 MG/ML) 0.5% *conc* inhalation solution 2.5 mg 2.5 mg Nebulizer PRGolden Guerrero PA-C Past Medical History: Diagnosis Date Abnormality of gait 04/02/2014 ACQUIRED HYPOTHYROID NEC 06/03/2007 Advance directive on file 11/24/2013 No, Advance Directive brochure offered, patient declined. 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 Kelly Dyslipidemia, goal to be determined Hyperlipidemia Fibromyalgia 07/17/2011 Gastric bypass status for obesity GERD (gastroesophageal reflux disease) Hereditary hemochromatosis (HCC) HTN, goal below 140/90 03/09/2014 Hypothyroidism Hypothyroidism Incomplete bladder emptying INFORMATION 02/2013 pachy 540/544 INFORMATION do NOT use right arm for procedures -lymph nodes Migraine Mitral valve prolapse Narcotic abuse ([facility]) 10/14/2012 Neuropathy likely from previous diabetes Post-op pain 04/02/2014 Pseudophakia OU Retinal telangiectasia of both eyes S/P total knee arthroplasty 04/01/2014 Tobacco use disorder 10/15/2013 Type 2 diabetes mellitus with hemoglobin A1c goal of less than 7.0% ([facility]) 05/27/2013 ICD-10 update of inactive term Weakness generalized 04/02/2014 Family History Problem Relation Age of Onset Thyroid Disorder Mother Diabetes Mother Asthma Mother Heart disease Mother Arthritis Mother Hypertension Mother Allergies Mother nasal allergies Heart Disorder Father Breast Cancer Sister ?uterine or cervical cancer also Heart attack Sister Other (ID) Brother heart stents Hypertension Grandmother (Maternal) Lung Disorder Grandfather (Maternal) Hypertension Son Breast Cancer Cousin (Maternal) Cancer Cousin (Maternal) breast ca Colon cancer No significant family history Ovarian cancer No significant family history Social History Socioeconomic History Marital status: Number of children: 1 Occupational History Occupation: Disabled. Comment: worked at [employer] before Tobacco Use Smoking status: Every Day Current packs/day: 0.50 Average packs/day: 0.5 packs/day for 43.0 years (21.5 ttl pk-yrs) Types: Cigarettes Smokeless tobacco: Never Tobacco comments: 1/2 ppd as of 08/21/23 Vaping Use Vaping Use: Never used Substance and Sexual Activity Alcohol use: No Comment: No alcohol since 06/2017 Drug use: Yes Types: Marijuana Comment: uses medical grade marijuana but not prescribed Sexual activity: Yes Partners: Male control/protection: Surgical Social History Narrative No pets in her home. No mold. Social Determinants of Health Food Insecurity: Food Insecurity Present (07/28/2022) Hunger Vital Sign Worried About Running Out of Food in the Last Year: Sometimes true Ran Out of Food in the Last Year: Sometimes true OBJECTIVE/PHYSICAL EXAMINATION: BP 146/78 (BP Site: Left Arm, BP Position: Sitting, BP Cuff Size: Large) | Pulse 58 | Ht 1.702 m (5' 7") | Wt 62.6 kg (138 lb) | LMP 05/13/1998 | BMI 21.61 kg/m | BSA 1.72 m General: No acute distress. A+Ox3. HEENT: Normocephalic. Atraumatic. PERRL. EOMI. Conjunctiva and sclera clear. NECK: No carotid bruits. No JVD. Carotid upstrokes are brisk. Heart: RRR. S1 and S2 noted. +1/6 systolic murmur. No rubs or gallops. PMI non displaced. Lungs: Clear to auscultation. No wheezes.No rhonchi. No rales. Abdomen: Normal bowel sounds. Soft. Nontender. No masses or organomegaly. No abdominal bruits. Extremities: No edema. No clubbing or cyanosis. Pulses: radial=2/4, posterior tibial=2/4, dorsalis pedis = 2/4. NEURO: No focal deficits. PSYCH: Appropriate affect and insight. DATA Labs & Imaging Reviewed Below: CTA ABD and Pelvia (for PAT and LARA) IMPRESSION Bilateral renal arteries are patent. ECHO 04/18/2023 The qualitative LV ejection fraction is 60-64% (normal). The right ventricular systolic function is normal. The right ventricular cavity size is normal. Mild mitral regurgitation is present. Mild aortic valve regurgitation is present VASC renal duplex 02/14/2023 CONCLUSIONS: On the right:: The renal-aortic ratio could not be calculated due to elevated velocities in the aorta. Possible RAstenosis On the left: The renal-aortic ratio could not be calculated due to elevated velocities in the aorta. Possible RAstenosis. EKG 07/17/[address] abnormality ZIO 07/17/2021 Patient had a min HR of 62 bpm, max HR of 133 bpm, and avg HR of 86 bpm. Predominant underlying rhythm was Sinus Rhythm. 1 run of Supraventricular Tachycardia/atrial tachycardia occurred lasting 6 beats with a max rate of 110 bpm (avg 101 bpm). Isolated SVEs were rare (<1.0%), SVE Couplets were rare (<1.0%), and SVE Triplets were rare (<1.0%). Isolated VEs were rare (<1.0%), and no VE Couplets or VE Triplets were present. ECHO 02/2021 Calculated LV ejection Fraction = 59% (three dimensional volumes). The right ventricular cavity size is normal The left ventricular diastolic function is mildly abnormal (grade I). There is no significant aortic regurgitation. Mild mitral regurgitation is present. Significant tricuspid regurgitation is absent. No pericardial effusion is noted. Normal IVC size and collapsability with inspiration indicates a normal right atrial pressure of 3 mmHg. Cardiac CATH 11/2019 Coronary arteries are angiographically normal.* Right Heart Catheterization: RA = 1 mmHg, RV = 24/-1 MmHg, PA = 23/3 (14) mmHg, PW = 9 mmHg, CO (Juan R) = 5.2 L/min, CI = 2.61 L/min/m2, CO (TD) = 7.68 L/min, CI = 3.86 L/min/m2, TPG = 5 mmHg, PVR = 77 D/S. Right heart catheterization shows low-normal intracardiac pressures, normal CO/CI and no evidence of pulmonary hypertension. PA sat 66% and Ao sat 95%. We noted, wide central arterial pulse pressure during left heart catheterization, recommend outpatient transthoracic echocardiogram. ASSESSMENT/PLAN: 63 year old year old female 1. Preoperative cardiovascular examination -Doing well from a cardiac perspective. -per Gokul Criteria, patient was counseled that she would be placed at a low- intermediate risk for any adverse perioperative cardiovascular events associated with spine/orthopedic surgery. Patient is on a good medication regimen and no other cardiac testing or interventions would further lower that risk. Patient states he understands and is accepting of that risk and wishes to proceed with surgery. -Discussed her most recent cardiac testing. Valvular disease is mild and should not be of significant risk. Recommend monitoring of fluid status postoperatively. 2. HTN, goal below 140/90 -High end of target today, is in pain with her back. -Continue Hydralazine, Toprol xl, and Lisinopril. 3. Mitral valve insufficiency, unspecified etiology -Known mild mitral and aortic insufficiency. Not new, remains unchanged. -Repeat echo in 1-2 years for surveillance 4. Pure hypercholesterolemia Continue on ASA and Atorvastatin DISPOSITION: Follow up 6 months or if symptoms worsen/fail to improve. All questions were answered to the patients satisfaction. Patient advised to report to ED with any and all emergencies. The patient agrees to the above plan and will call with additional questions or concerns. [facility], [address] [place] [address] I spent a total of 32 minutes on the date of service in preparation, delivery, and documentation ofthe care provided to Cata Diego excluding any time spent in the performance of separately billed services. This chart was completed in part utilizing [employer] Speech Voice Recognition Software. Grammatical errors, random word insertions, pronoun errors, and incomplete sentences are an occasional consequence of this system due to software limitations, ambient noise, and hardware issues. Any formal questions or concerns about the content, text, or information contained within the body of this dictation should be directly addressed to the provider for clarification. documented in this encounter Nursing Notes * Hiral Arnold NRCMA - 08/21/2023 10:08 AM EDT Examination Room: 5 Name: Cata Diego Date of : (1960). Reason for Visit: pre-op evaluation for impending lumbar spine sx with Dr Soni ([facility] on 08/27/23 Interim Hospitalization(s): none recently Problems/Concerns: no cardiac complaints today. Chest Pain/SOB: no CP or SOB. Medications were updated via: pt memory. My [facility] is a way you can talk to your provider online through e-mail. Would you like to sign up? I can activate it for you? ALREADY ACTIVE Patient was instructed to not get up on the exam table until directed and assisted by their provider; patient is to remain seated in the chair/ wheelchair/ exam table for fall prevention and safety reasons. Patient is aware to have assistance to step down off exam table with personnel. Patient voiced full comprehension of instructions. documented in this encounter Plan of Treatment Upcoming Encounters Date Type Department Care Team (Late st Contact Info) Description 09/30/2023 10:00 AM EDT Laboratory Laboratory, [facility] [address] [facility], [place] [phone] [facility] [address] [facility] [address] 10/30/2023 1:00 PM EDT PulmDiagnostic Pulmonary Function Lab, [facility] [address] [facility] [address] [facility] [address] [facility] [address] 10/30/2023 2:00 PM EDT Office Visit Pulmonary Medicine [facility] [address] [facility] [place] [phone] Golden Leary PA-C [address] [facility] [place] [address] 11/04/2023 11:00 AM EDT [facility], [place] [facility] [address] [place] DO [address] [facility] [place] [address] Nurse [place] [facility] [address] [facility] [place] [address] 12/30/2023 10:00 AM EDT Telemedicine Hematology/Oncology, [address] [address] Petar Abdi MD [address] [facility] [phone] Cart, Telemed [facility] [address] [facility] [place] [address] 03/06/2024 10:00 AM EDT [facility], [place] [address] [facility] [place] [address] Kim Lopez CRNP [address] [place] [address] Scheduled Procedures Name Priority Associated Diagnoses Date/Ti me COLONOSCOPY FLEXIBLE PROXIMA L DIAGNOSTIC Recall History of colonic polyps Health Maintenance Due Date Last Done Comments *ADVANCE DIRECTIVE NOT ON FILE 03/30/2019 Diabetic Foot Exam 07/26/2022 07/26/2021, 0 07/19/2020, 04/28/2019, Additional history exists DTaP,Tdap,and Td Vaccines (2 - Td or Tdap) 10/24/2022 10/24/2012 COVID-19 Vaccine (2022- season) 2023 02/06/2022, 04/01/2021, 08/24/2020, Additional history exists Albumin/Creatinine Ratio 04/19/2023 022, 01/24/2021, 09/09/2019, Additional history exists Diabetic Eye Exam 08/07/2023 08/06/2022, , 08/06/2022, Additional history exists HbA1c 08/16/2023 02/14/2023, 01/12, 08/04/2021, Additional history exists DISCUSS TOBACCO CESSATION (REFER TO SMARTSET #4760) 11/07/2023 11/06/2022, 12/19/2021, 04/14/2021, Additional history exists GFR 02/15/2024 02/14/2023, 01/12, 10/25/2021, Additional history exists TSH 02/15/2024 02/14/2023, 01/12, 09/18/2021, Additional history exists Mammogram 05/08/2024 05/08/2023, 03/13, 03/20/2021, Additional history exists O2 ASSESSMENT COMPLETED IN PAST YEAR FOR COPD 07/01/2024 07/01/2023 COLONOSCOPY-EVERY 5 YRS AGES 18-100 03/09/2025 03/09/2020, 03/09/2020, 09/26/2015, Additional history exists Pneumococcal Vaccine: Pediatrics (0 to 5 Years) and At-Risk Patients (6 to 64 Years) (3 of 3 - PPSV23 or PCV20) 2026 06/11/2016, 02/23/2008 Lipid Panel 02/15/2028 02/14/2023, 01/12, 01/24/2021, Additional history exists Zoster Vaccines Completed 10/23/2019, 07/23/2019 COLONOSCOPY-EVERY 3 YRS AGES 18-100 Discontinued 03/09/2020, 03/09/2020, 09/26/2015, Additional history exists Alpha-1 Antitrypsin Completed 08/18/2021, 0 Hepatitis B Completed 08/31/2022, 07/12, 06/01/2014, Additional history exists Influenza Vaccine (FLU shot) Completed 01/31/2023, 01/31/2023, 01/26/2022, Additional history exists LUNG CANCER SCREENING - USE SMARTSET 39114 Completed 03/19/2023, 03/14/2022, 03/20/2021, Additional history exists GARDASIL-HPV IMMUNIZATION SERIES Aged Out No longer eligible based on patient's age to complete this topic MENINGOCOCCAL (MENACTRA/MENVEO) Aged Out No longer eligible based on patient's age to complete this topic documented as of this encounter Medical Devices Implanted Type Area Guest Service Aide Device Identifier Shelf Expiration Date Model / Serial / Lot Lens 22.0 [id number] - [id number] - [id number] Implanted:Qty: 1 on 09/02/2015 by Steve Araujo MD at OR [facility] Left: Eye VIVI : SURGICAL 03/12/2020 [id number] / [id number] / Lens 22.0 [id number] - [id number] Implanted:Qty: 1 on 01/06/2016 by Steve Araujo MD at OR [facility] Right: Eye VIVI : SURGICAL 03/12/2020 [id number] / [id number] / Screw Tenodesis 4x10mm - [id number] Implanted:Qty: 1 on 06/09/2018 by Roel Kelly MD at OR [facility] Right: Hand [employer] 05/12/2019 [id number] / / [id number] [place] Smootht-E Highly Crosslinked Polyethylene Implanted:Qty: 1 on 12/13/2020 by Philipp Syed MD at OR [facility] Left: Knee ANIYAH (BIOMET) CMF 04/11/2024 [id number] / [id number] documented as of this encounter Visit Diagnoses Diagnosis Preoperative cardiovascular examination- Primary Pre-operative cardiovascular examination HTN, goal below 140/90 Unspecified essential hypertension Mitral valve insufficiency, unspecified etiology Pure hypercholesterolemia documented in this encounter Advance Directives Latest Code Status on File Code Status Date Activated Date Inactivated Comments Full Code 02/18/2021 5:55 PM 02/23/2021 4:01 PM This order reflects the patients wishes and were consensually agreed upon. Question Answer Comments Discussion of Advance Directives occurred with: Patient Code Status History Code Status Date Activated Date Inactivated Comments Full Code 12/13/2020 10:11 AM 12/14/2020 3:14 PM This o rder reflects the patients wishes and were consensually agreed upon. Full Code 07/06/2019 8:29 PM 07/07/2019 3:40 PM This order reflects the patients wishes and were consensually agreed upon. Full Code 12/11/2016 8:48 PM 12/16/2016 4:27 PM This or tianna reflects the patients wishes and were consensually agreed upon. Full Code 01/06/2016 9:49 AM 01/06/2016 6:47 PM This order reflects the patients wishes and were consensually agreed upon. Care Teams Threading Machine Setter Relationship Specialty Start Date End Date Era Pimentel DO [address] [id number] PCP - General Family Medicine 04/05/23 documented as of this encounter
[2023-08-27] MEDS ORDERED: SUGAMMADEX SODIUM 200 MG/2 ML VIAL IV ONE (12:39)
[2023-08-27] MEDS ORDERED: fentaNYL citrate PF 100 MCG/2 ML VIAL ONE (12:54)
[2023-08-27] MEDS: ceFAZolin 330 MG/ML 1 GM VIAL ONE (13:03)
[2023-08-27] MEDS ORDERED: PHENYLEPHRINE 100MCG/ML 10ML SYR IV ONE (13:07)
[2023-08-27] MEDS ORDERED: ePHEDrine sulfate 50 MG/ML AMP ONE (13:07)
--- NOTE | 2023-08-27 13:17 | Operative Report ---
Post Operative Report Pre & Post Diagnosis Operation Date: 08/27/23 10:45 Pre-Op Diagnosis: Lumbar disc herniation with radiculopathy Lumbar spinal stenosis with radiculopathy Post-Op Diagnosis: Same I identified the patient and participated in the time-out.: Yes Procedure Operation Date: 08/27/23 10:45 Actual Procedures #1 lumbar decompression with bilateral medial facetectomies and foraminotomies L5-S1. #2 posterior spinal fusion L5-S1. #3 placed posterior instrumentation L5-S1. #4 interbody fusion L5-S1. #5 placement of Spira 10 x 26 mm L5-S1. #6 placement locally harvested morselized autograft and posterior gutters. #7 placement infuse collagen sponge combined with Koros bone graft in the posterior lateral gutters and course bone graft interbody space. Surgeon Tino Soni, Professional Builder Yue Lu Estimated Blood Loss 50 Findings Consistent with Post-Op Diagnosis Specimens none Indications This is a 63-year-old female who presents above-mentioned diagnosis of failed course of nonoperative care is here for surgical invention. Description of Procedure Patient was met with identified informed consent obtained. Patient was then taken to the operative suite, patient placed in a prone position on the Levy table top of the Vernon frame. All bony promises well-padded eyes inspected to ensure no external pressure placed upon them. This point the lumbar spine was prepped and draped in normal sterile fashion. Sharp dissection with the assistance of Bovie cautery was performed down to and exposing the lamina transverse processes of L5 and sacral ala bilaterally. From caudal cephalad fashion complete laminectomy of L5 was performed including bilateral medial facetectomies and foraminotomies performed to address all spinal stenosis. Also removed a disc herniation L5-S1 on the right causing significant compression of the traversing S1 nerve root. Pedicle screws were then placed in L5 and S1 levels bilaterally with assistance of fluoroscopy in the process audra placed. By way of transforaminal approach on the left complete discectomy L5-S1 was performed endplates guided to subcortical mean bone and a 10 x 26 mm spiral cage filled with Koros bone graft tapped in position. The rods were then compressed locked into final position bilaterally. The transverse processes of L5 and sacral ala burred to subcortical bleeding bone. Infuse collagen sponge, with Koros and local autograft placed in the posterior lateral gutters. 15 round ANGIE drain inserted. The incision was then closed with 1 Vicryl to fascia 2-0 Vicryl subcutaneously and 4 Monocryl for final skin closure. Steri-Strips sterile dressing placed. Patient waken taken to PACU in stable condition. Please note spinal cord monitoring visualized at the procedure no changes noted. Lastly Yue Lu was present at the entire surgery involved the patient positioning complex portions of the surgery and final skin closure. I attest to the content of the Intraoperative Record and any orders documented therein. Any exceptions are noted below.
--- NOTE | 2023-08-27 13:24 | Fluoroscopy Report ---
FL lumbar spine 2-3V CLINICAL HISTORY: L5-S1 DECOMPRESSION AND FUSION COMPARISON STUDY: None. FLUOROSCOPY TIME: 21 seconds. Ka, r: 14.06 mGy FLUOROSCOPIC IMAGES: 2 FINDINGS: Fluoroscopy was provided during L5-S1 discectomy with interbody spacer placement, posterior decompression and pedicle screw fusion. IMPRESSION: Fluoroscopy provided during L5-S1 decompression and fusion. ACT 112: Negative or not required by law. Electronically signed by: Johnathon Infante M.D. 08/27/2023 1:23 PM
[2023-08-27] MEDS: fentaNYL citrate PF 100 MCG/2 ML VIAL IV PRN (13:48)
--- NOTE | 2023-08-27 14:27 | Anesthesiology Progress Note ---
Date of Service August 27, 2023 Anesthesia Post Procedure Vital Signs Vital Signs: Temp Pulse Pulse Resp BP Pulse Ox O2 Del Method 08/27/23 14:15 73 12 131/59 L 98 Nasal Cannula 08/27/23 14:05 98.1 F 71 12 135/58 L 98 Nasal Cannula 08/27/23 13:55 70 12 126/51 L 97 Nasal Cannula 08/27/23 13:45 74 13 143/61 H 99 Oxymask 08/27/23 13:35 76 16 152/65 H 99 Oxymask 08/27/23 13:26 96.8 F L 80 16 154/85 H 100 Oxymask 08/27/23 10:08 98.4 F 69 20 135/62 98 Room Air O2 Flow Rate 08/27/23 14:15 2 08/27/23 14:05 2 08/27/23 13:55 2 08/27/23 13:45 6 08/27/23 13:35 6 08/27/23 13:26 6 08/27/23 10:08 Pain Intensity Right Buttock: Pain Intensity: 8 Back: Pain Intensity: 5 Transfer of Care Handoff Completed per policy Notes Mental Status: alert / awake / arousable and participated in evaluation Patient Amnestic to Procedure: Yes Nausea / Vomiting: adequately controlled Pain: adequately controlled Airway Patency, RR, SpO2: stable & adequate BP & HR: stable & adequate Hydration State: stable & adequate Anesthetic Complications: no major complications apparent and Pt Satisfied with anesthetic care
[2023-08-27] MEDS ORDERED: PROMETHAZINE HCL 12.5 MG in SODIUM CHLORIDE 0.9% 50 ML IV PRN (14:49)
[2023-08-27] MEDS ORDERED: MAGNESIUM HYDROXIDE SUSP 30 ML UDC PO PRN (14:49)
[2023-08-27] MEDS ORDERED: METOCLOPRAMIDE HCL INJ 5 MG/ML 2 ML VIAL IV PRN (14:49)
[2023-08-27] MEDS ORDERED: ONDANSETRON 4 MG OD TAB PO PRN (14:49)
[2023-08-27] MEDS ORDERED: SOD PHOSPHATE/SOD BIPHOSPHATE ENEMA 132 ML BTL PR PRN (14:49)
[2023-08-27] MEDS ORDERED: ALBUTEROL HFA 8 GM INHALER INH PRN (14:49)
[2023-08-27] MEDS ORDERED: LORazepam 0.5 MG TAB PO PRN (14:49)
[2023-08-27] MEDS ORDERED: hydrOXYzine HCl 25 MG TAB PO PRN (14:49)
[2023-08-27] MEDS ORDERED: traMADol HCL 50 MG TABLET PO PRN (14:49)
[2023-08-27] MEDS ORDERED: bisacodyL 10 MG SUPP PR PRN (14:49)
[2023-08-27] MEDS ORDERED: ACETAMINOPHEN 1,000 MG/100 ML VIAL IV PRN (14:49)
[2023-08-27] MEDS ORDERED: DO NOT ADMINISTER FLU VACCINE PRN (14:49)
[2023-08-27] MEDS ORDERED: LORazepam 0.5 MG in SYRINGE 0.25 ML IV PRN (14:49)
[2023-08-27] MEDS ORDERED: diphenhydrAMINE Capsule 25 MG CAP PO PRN (14:49)
[2023-08-27] MEDS ORDERED: FAMOTIDINE 20 MG TAB PO PRN (14:49)
[2023-08-27] MEDS ORDERED: ALUMINUM/MAGNESIUM SUSP 30 ML UDC PO PRN (14:49)
[2023-08-27] MEDS ORDERED: NALOXONE HCL 0.4 MG/1 ML VIAL/CARP IV PRN (14:49)
[2023-08-27] MEDS ORDERED: DO NOT ADMINISTER PNEUMOCOCCAL VACCINE PRN (14:49)
[2023-08-27] MEDS ORDERED: ARTIFICIAL TEARS OP PRN (15:09)
[2023-08-27] MEDS: LACTATED RINGER'S 1,000 ML IV SCH (16:27)
[2023-08-27] MEDS: hydrALAZINE HCL 25 MG TAB PO SCH (16:32)
[2023-08-27] MEDS: hydrOXYzine HCl 25 MG TAB PO SCH (16:32)
[2023-08-27] MEDS: DOXEPIN HCL 25 MG CAPSULE PO SCH (16:33)
[2023-08-27] MEDS: GABAPENTIN 100 MG CAP PO SCH (16:33)
[2023-08-27] MEDS: ACETAMINOPHEN 500 MG TAB PO PRN (16:36)
[2023-08-27] MEDS ORDERED: PROPYLENE GLYCOL GLYCERIN OP SCH (17:00)
[2023-08-27] MEDS: oxyCODONE HCL IR 5 MG TAB (IMMEDIATE RELEASE) PO PRN (17:21)
[2023-08-27] MEDS: CLINDAMYCIN/D5W 600 MG/50 ML BAG IV SCH (17:43)
[2023-08-27] MEDS: HYDROmorphone INJ 0.5 MG/0.5 ML SYR IV PRN (19:58)
[2023-08-27] MEDS: METOPROLOL SUCC 50MG EXT REL TAB PO SCH (20:05)
[2023-08-27] MEDS: MIRTAZAPINE TAB 15 MG TAB PO SCH (20:05)
[2023-08-27] MEDS: PRIMIDONE 50 MG TAB PO SCH (20:06)
[2023-08-27] MEDS: FAMOTIDINE 20 MG TAB PO SCH (20:07)
[2023-08-27] MEDS: ATORVASTATIN 40 MG TAB PO SCH (20:07)
[2023-08-27] MEDS: PANTOprazole 40 MG TAB PO SCH (20:07)
[2023-08-27] MEDS: AZELASTINE HCL 0.1% NASAL 200 SPRAYS/27,400 MCG BTL SCH (20:08)
[2023-08-27] MEDS: FLUTICASONE PROPIONATE NA SPR 16 GM BTL SCH (20:09)
[2023-08-27] MEDS: DOCUSATE SODIUM/SENNA 50/8.6MG TAB PO SCH (20:09)
[2023-08-28] MEDS: NICOTINE 21 MG/24 HR TDSY TD SCH (04:34)
[2023-08-28] MEDS: LEVOTHYROXINE SODIUM 75 MCG TABLET PO SCH (05:14)
[2023-08-28] MEDS: POLYETHYLENE (MIRALAX) 17 GM PACK PO SCH (05:14)
[2023-08-28 07:39] LABS: Basophils # (auto) 0.08 K/uL (0.00-0.20); Basophils % (auto) 0.8 %; Eosinophils # (auto) 0.27 K/uL (0.00-0.50); Eosinophils % (auto) 2.8 %; Hematocrit (blood only) 31.1 % (37.0-47.0); Hemoglobin 10.6 g/dl (12.0-16.0); Immature Granulocytes # (auto) 0.04 K/uL (0.01-0.20); Immature Granulocytes % (auto) 0.4 %; Lymphocytes # (auto) 1.49 K/uL (1.20-3.40); Lymphocytes % (auto) 15.3 %; Mean Corpuscular Hemoglobin 32.1 pg (25.0-34.0); Mean Corpuscular Hgb Conc 34.1 g/dL (32.0-36.0); Mean Corpuscular Volume 94.2 fL (80.0-100.0); Mean Platelet Volume 9.2 fL (9.4-12.4); Monocytes # (auto) 0.93 K/uL (0.11-0.59); Monocytes % (auto) 9.5 %; Neutrophils # (auto) 6.93 K/uL (1.40-6.50); Neutrophils % (auto) 71.2 %; Platelet Count 274 K/uL (130-400); RDW Coefficient of Variation 14.5 % (11.5-14.5); RDW Standard Deviation 50.5 fL (36.4-46.3); White Blood Count 9.74 K/ul (4.8-10.8)
[2023-08-28 07:44] LABS: BUN Creatinine Ratio 22.6 (10-20); Calcium 8.5 mg/dl (8.6-10.3); Creatinine Clr Calc Pharmacy 91.5 ml/min; Est GFR (Non-African American) 96.6 ml/min; Potassium 4.2 mmol/L (3.5-5.1)
--- NOTE | 2023-08-28 08:34 | Orthopedic Progress Note ---
Date of Service August 28, 2023 Assessment & Plan (1) Neurogenic claudication due to lumbar spinal stenosis: Plan: Cata is postoperative day 1 status post TLIF L5-S1. She is doing well. Will start physical therapy today. DVT prophylaxis is in the form of teds and SCDs. Work on bowel regimen. Continue with pain control. Maintain ANGIE drain. Anticipate discharge home within the next day or 2. Admission and Anticipated Discharge Date Admission Date: August 27, 2023 Subjective Cata is postoperative day 1 status post TLIF L5-S1. She is doing well. Back pain is controlled. Leg symptoms improved. ANGIE drain output last shift was 90 cc. H&H this morning are 10.6 and 31.1 respectively. No other complaints. Review of Systems Review of Systems: All systems reviewed & are unremarkable except as noted in HPI & below Physical Exam Physical Exam: She sitting up in a chair eating breakfast in no acute distress Alert and oriented x 3 lumbar dressing is clean dry intact with functioning ANGIE drain Strength intact bilateral lower extremities ROMEO hose intact bilateral lower extremities Results & Data Vital Signs (Past 12 Hours) Vital Signs Temp Pulse Resp BP Pulse Ox O2 Del Method 08/28/23 07:17 36.6 C 78 16 134/78 97 Room Air 08/28/23 03:00 37.1 C 78 14 166/76 H 97 Room Air 08/27/23 23:12 36.8 C 78 14 118/66 94 Room Air
[2023-08-28] MEDS: dexAMETHasone 6 MG in SYRINGE 0 ML IV SCH (08:39)
[2023-08-28] MEDS: VITAMIN B COMPLEX TAB PO SCH (08:40)
[2023-08-28] MEDS: CHOLECALCIFEROL 25 MCG (1000 UNITS) TAB PO SCH (08:40)
[2023-08-28] MEDS: amLODIPine BESYLATE 5 MG TAB PO SCH (08:40)
[2023-08-28] MEDS: LORATADINE 10 MG TAB PO SCH (08:40)
[2023-08-28] MEDS: DULoxetine HCL 60 MG CAP PO SCH (08:40)
[2023-08-28] MEDS: ASPIRIN 81 MG ECTAB PO SCH (08:40)
[2023-08-28] MEDS: FLUTICASONE/VILANTEROL 100/25MCG 14 PUFFS/INHALER INH SCH (08:42)
[2023-08-28] MEDS ORDERED: lisinopril 40 MG TAB PO SCH (09:00)
--- NOTE | 2023-08-28 13:26 | Hospitalist Consultation ---
Date of Consultation August 28, 2023 Assessment & Plan (1) Neurogenic claudication due to lumbar spinal stenosis: S/p L5-S1 Decompression and Fusion with Dr. Soni 08/26 - Pain control, dvt proh, bowel regiment and abx per primary team - EBL 50 - hgb 10.6, was 11.4 preoperatively - ?diluation vs acute blood loss anemia with chronic anemia - PT/OT Na low at 133, patient has been hyponatremic in the past. asymptomatic. AM BMP (2) Benign essential hypertension: Continue amlodipine, hydralazine, and metoprolol Hold Lisinopril (3) Anxiety: Continue doxepin, duloxetine, hydroxyzine, mirtazapine and Trintellix (4) Tobacco use disorder: smokes 1/2 ppd continue nicotine patch (5) SUAD (obstructive sleep apnea): Patient denies CPAP machiene use at home (6) Diabetes mellitus, type 2: Reports has been diet controlled since her gastric bupas surgery. Reports A1c usually runs around 6 HgbA1c: 7.8 - insulin sliding scale - BS ACHS Plan Dispo: stable, will follow blood pressure Thank you for allowing us to participate in the care of this patient, please reach out with any questions or concerns History of Present Illness Reason for Consultation: Medical management Attending Physician: Tino Soni, DO History of Present Illness Ms. Diego is a 63F with a PMH of HTN, DMT2, hypothyroid, hemachromatosis, HLD, COPD/asthma, anxiety and depression and GERD. Present to the hospital for elective back surgery with Dr. Soni. At time of consult, patient is resting in bed, but overall reports feeling well. States she had difficulty controlling her pain overnight, but since receiving the dexamethasone, she has gotten ahead of the pain has been controlled with tylenol. Has been ambulating in the halls and had a BM today. She does NOT use a cpap machine at home. + tobacco use Allergies Allergy/AdvReac Type Severity Reaction Status Date / Time Penicillins Allergy Severe SWELLING Verified 08/27/23 09:56 Sulfa (Sulfonamide Allergy Severe HIVES Verified 08/27/23 09:56 Antibiotics) adhesive AdvReac Intermediate REDNESS Verified 08/27/23 09:56 AND ITCHING hydrochlorothiazide AdvReac Intermediate LOWERS Verified 08/27/23 09:56 SODIUM LEVELS ibuprofen AdvReac Mild CANNOT Verified 08/27/23 09:56 TAKE R/T GASTRIC BYPASS Home Medications Medication Instructions Recorded Confirmed Type Budesonide 0.05% With Saline 1 spray intranasal HS 10/11/21 08/27/23 History acetaminophen 650 mg 1,300 mg PO TID PRN Pain 10/11/21 08/27/23 History tablet,extended release (Tylenol Arthritis Pain) albuterol sulfate 90 mcg/actuation 2 puff inhalation QID PRN Wheezing 10/11/21 08/27/23 History aerosol inhaler azelastine 205.5 mcg (0.15 %) 2 spray intranasal BID 10/11/21 08/27/23 History nasal spray cholecalciferol (vitamin D3) 50 50 mcg PO QAM 10/11/21 08/27/23 History mcg (2,000 unit) capsule (Vitamin D3) diphenhydramine HCl 25 mg capsule 25 mg PO HS PRN Sleep 10/11/21 08/27/23 History (Benadryl) doxepin 25 mg capsule 25 mg PO TID 10/11/21 08/27/23 History duloxetine 60 mg capsule,delayed 60 mg PO QAM 10/11/21 08/27/23 History release (Cymbalta) hydroxyzine HCl 50 mg tablet 50 mg PO TID 10/11/21 08/27/23 History linaclotide 145 mcg capsule 145 mcg PO QPM PRN Constipation 10/11/21 08/27/23 History (Linzess) mirtazapine 30 mg tablet (Remeron) 30 mg PO HS 10/11/21 08/27/23 History vitamin B complex 1 cap PO QAM 10/11/21 08/27/23 History vortioxetine 20 mg tablet 20 mg PO HS 10/11/21 08/27/23 History (Trintellix) cyclosporine 0.05 % eye drops in a 1 drp ophthalmic (eye) Q12H #60 ea 11/19/22 08/27/23 Rx dropperette (Restasis) naltrexone microspheres 380 mg 380 mg IM .COMPLEX #1 ea 11/19/22 08/27/23 Rx intramuscular suspension,extended release (Vivitrol) propylene glycol-glycerin 0.6 1 drp ophthalmic (eye) QID #30 ea 11/19/22 08/27/23 Rx %-0.6 % eye drops in a dropperette (Soothe Lubricant) hydralazine 25 mg tablet 25 mg PO TID #270 tabs 06/18/23 08/27/23 Rx aspirin 81 mg tablet 81 mg PO QAM 07/05/23 08/27/23 History atorvastatin 40 mg tablet (Lipitor) 40 mg PO QPM 07/05/23 08/27/23 History budesonide-formoterol HFA 80 2 puff inhalation Q12H #10.2 grams 07/11/23 08/27/23 Rx mcg-4.5 mcg/actuation aerosol inhaler (Symbicort) gabapentin 100 mg capsule 200 mg (2 x 100 mg) PO TID #180 08/01/23 08/27/23 Rx caps amlodipine 5 mg tablet (Norvasc) 10 mg PO QAM 08/05/23 08/27/23 History ibuprofen 200 mg capsule 400 mg PO TID severe back pain 08/05/23 08/27/23 History lisinopril 40 mg tablet (Zestril) 40 mg PO QAM 08/05/23 08/27/23 History metoprolol succinate 25 mg 50 mg PO HS 08/05/23 08/27/23 History tablet,extended release 24 hr primidone 50 mg tablet (Mysoline) 50 mg PO BID 08/27/23 08/27/23 History famotidine 20 mg tablet (Pepcid) 20 mg PO BID #60 tabs 08/28/23 Rx lansoprazole 30 mg capsule,delayed 30 mg PO BID #60 caps 08/28/23 Rx release (Prevacid) levothyroxine 75 mcg capsule 75 mcg PO QAM #30 caps 08/28/23 Rx loratadine 10 mg tablet 10 mg PO QAM #90 tabs 08/28/23 Rx Patient History Medical History (Updated 08/28/23 @ 16:14 by Yadira Arellano PA-C) SUAD (obstructive sleep apnea) unable to tolerate cpap HLD (hyperlipidemia) HTN (hypertension) Claustrophobia Weight loss, unintentional PCP aware - stable per patient (has gastric bypass)- patient feels well Insomnia Rx Remeron at night for insomnia Fibromyalgia Rx Cymbalta Anxiety Follows with [facility] Rx Doxepin TID and Vistaril TID for panic attacks Alcoholism Rehab 2014 Relapse 2017 Was taking Vivitrol monthly- has been off Vivitrol since Jun 2023- no issues Relapse February 2022, sober since then Breast cancer (~2003) s/p right breast lumpectomy and radiation; no chemo no current issues Hereditary hemochromatosis Therapeutic Phlebotomy w/ [facility] (Dr Castellanos) Check blood work every three months Lumbar radicular pain Right buttocks, radiates down back of leg Follows with [facility] L-Spine MRI (08/20/22) s/p right L5 TF JANNETTE (09/11/22) s/p physical therapy (09/17/22) 50-60% pain relief w/ injection and PT Right foot drop as of PAT appt 08/19/23 due to lumbar issues Chronic rhinitis Rx Astelin and liquid Budesonide in saline lavage (from ENT) Tobacco use disorder 1/2 PPD since age 16 Follows with Pulm Mild intermittent asthma Rx Symbicort daily, CHRIS 1-2x/week Follows with [facility] Breathing stable Osteoarthritis History of IBS Linzess PRN Follows with [facility] w/ [facility] GERD (gastroesophageal reflux disease) EGD 03/09/20 well controlled and stablle Diabetes mellitus, type 2 Diet controlled, improved since weight loss Hypothyroidism Depression Rx Trintellix Migraine Ear piercing helped with migraines Surgical History History of laparoscopy multiple with adhesion removals Hx of finger joint replacement right index finger History of hand surgery Right thumb joint History of total knee replacement Left TKA and revision History of cataract surgery R/L History of carpal tunnel release L X 1-R X 3-4 History of hysterectomy OFELIA and BSO History of cholecystectomy History of appendectomy History of esophagogastroduodenoscopy (EGD) History of gastric bypass (~2005) [facility], lost 200 lbs History of colonoscopy History of lumpectomy of right breast 2003-RADIATION/NO CHEMO-RIGHT ARM RESTRICTION History of cardiac cath (~11/12/19) coronary arteries angiographically normal, no stents Family History Mother Family history of diabetes mellitus Other No family history of adverse response to anesthesia Social History Smoking Status: Current every day smoker Tobacco Type: Cigarettes Cigarettes Per Day: 20 CIGS A DAY (advised on policy); Second Hand Exposure: Yes; Do You Dip or Chew Tobacco: No; Tobacco Cessation Education Requested by Patient: No Hx Alcohol Use: Yes (alcohol abuse) Hx Substance Use: Yes Last Used Substance Other:: 03/2023 (rare occasion) Preferred Language: Turkish Communication Ability: Effective Visual Impairment: No Limitations Information Security Architect Required: No Beliefs That Will Affect Care: None Current Living Situation: Alone current occupational status: disabled Other Information That Helps Us Care for You: No Feels Safe at Home: Yes Safety Concerns: Feels Safe At This Time Assistive Devices: None Review of Systems Review of Systems: All systems reviewed & are unremarkable except as noted in Subjective Physical Exam Physical Exam: General: NAD, VS as above Resp: normal respiratory effort, lungs clear to auscultation CV: RRR, no murmur, Abd: normal bowel sounds, non tender, no hepatosplenomegaly Back: dressing c/d/i, Drain with serosanguineous fluid Extremities: Moves all extremities, no edema Neuro: A&O x3, Results & Data Results & Data Vital Signs (Past 12 Hours) Vital Signs Temp Pulse Resp BP Pulse Ox O2 Del Method 08/28/23 07:17 36.6 C 78 16 134/78 97 Room Air 08/28/23 03:00 37.1 C 78 14 166/76 H 97 Room Air Laboratory Results CBC and chemistry reviewed PG Care Time/CCT Total # of Minutes Spent Total Time Spent with Patient: Total time spent is greater than 50% in coordination of care (as documented) at patient's floor/unit and/or counseling patient: Coding Level of Care Code 18551 IN/OBS CONSULT LVL 3,45M Diagnoses Neurogenic claudication due to lumbar spinal stenosis M48.062 Benign essential hypertension I10 Anxiety F41.9 Tobacco use disorder F17.200 SUAD (obstructive sleep apnea) G47.33 Diabetes mellitus, type 2 E11.9
[2023-08-28] MEDS ORDERED: CARBOHYDRATES FOR HYPOGLYCEMIA PO PRN (16:20)
[2023-08-28] MEDS ORDERED: GLUCOSE 40% GEL 15 GM TUBE PO PRN (16:20)
[2023-08-28] MEDS ORDERED: DEXTROSE 50% 50 ML SYRINGE IV PRN (16:20)
[2023-08-28] MEDS ORDERED: GLUCOSE 10 TAB/TUBE PO PRN (16:20)
[2023-08-28] MEDS ORDERED: GLUCAGON FOR INJ 1 MG VIAL SQ PRN (16:20)
[2023-08-28] MEDS: INSULIN ASPART PER UNIT CHARGE SC SCH (17:51)
[2023-08-29 07:31] LABS: BUN Creatinine Ratio 28.6 (10-20); Calcium 8.9 mg/dl (8.6-10.3); Creatinine Clr Calc Pharmacy 115.8 ml/min; Est GFR (Non-African American) 104.4 ml/min; Potassium 3.8 mmol/L (3.5-5.1)
--- NOTE | 2023-08-29 08:23 | Discharge Summary ---
Date of Service August 29, 2023 Admission HPI Per Admitting Provider This is a 63-year-old female who presents with chronic persistent back and leg pain and failing course of nonoperative care she is here for surgical invention. Principal Diagnosis Lumbar spinal stenosis with radiculopathy Discharge Data Allergies Allergy/AdvReac Type Severity Reaction Status Date / Time Penicillins Allergy Severe SWELLING Verified 08/27/23 09:56 Sulfa (Sulfonamide Allergy Severe HIVES Verified 08/27/23 09:56 Antibiotics) adhesive AdvReac Intermediate REDNESS Verified 08/27/23 09:56 AND ITCHING hydrochlorothiazide AdvReac Intermediate LOWERS Verified 08/27/23 09:56 SODIUM LEVELS ibuprofen AdvReac Mild CANNOT Verified 08/27/23 09:56 TAKE R/T GASTRIC BYPASS Consultations 08/27/23 14:49 Consult Hospitalist Routine Procedures Performed Operation Date: 08/27/23 10:45 Actual Procedures p L5-S1 Decompression and Fusion, Spinal Cord Monitoring(Not Applicable) - Tino Soni DO Ordered Studies 08/27/23 10:45 FL lumbar spine 2-3V Routine Hospital Course (1) Neurogenic claudication due to lumbar spinal stenosis: Patient with lumbar decompression fusion tolerated this well was taken to the orthopedic for postoperative. Postop patient progressed appropriate. Leg pain markedly proved. Pain well-controlled. Excellent strength testing. ANGIE drain decreased probably. Simply discharged home. Discharge orders and instructions found in chart for further review. Total Time Total Time Spent Total Time Spent (In Minutes): 20 minutes Discharge Plan Discharge Items Patient Disposition: Home - Self-Care Reason For Visit: Lumbar Radiculopathy, Lumbar Disc Herniation with Discharge Diagnosis: Lumbar spinal stenosis with radiculopathy Activity: As commented below Non-emergency contact: Primary Care Provider Call non-emergency contact if: you have any medication questions Follow-up/Referrals: Era Pimentel DO [Primary Care Provider] - Diet: Regular Addtl Attending Provider Instructions: ACTIVITY RECOMMENDATIONS: SELF CARE INSTRUCTIONS AFTER THORACIC/LUMBAR FUSIONS 1. You may walk to your tolerance. It is good exercise for your legs and back. Expect some back and intermittent leg aches and pains. 2. You may perform "counter-top" level activities (make a sandwich, mary with a project, etc.). 3. No bending or lifting of more than 10 pounds or back twisting of any nature (roll like a log when turning in bed). 4. You may ride in a car for 20-30 minutes at a time. No driving until after your first visit with your doctor. 5. Frequent changes of position and restricting sitting to 30 minutes at a time will help limit the amount of back spasms and stiffness you may experience. 6. You may discontinue the use of ambulatory aids (cane, crutches, etc.) once your strength and confidence allow. 7. You may counterintelligence agent the shower and let water strike your incision when you arrive home at least once daily. Do not take a tub bath, sit in a hot tub or go into a swimming pool until after your first recheck in the office. SPECIAL CARE INSTRUCTIONS: VERY IMPORTANT TO READ AND REVIEW A. Your surgical incision has been closed with a cosmetic suture under the skin that will dissolve in about 6 weeks. In 14 days, you can use a pair of clean scissors and cut the suture that is left outside of the skin at the ends of your incision. 1. The small skin tapes can be removed 7 days after surgery if they have not fallen off by that point. 2. You may keep the wound open to air as much as possible to promote healing after post-op day number 5 unless told otherwise by your doctor. 3. If you think the wound looks like it is becoming infected (redness or worsening drainage) and/or you are experiencing fever, chill or worsening back pain and muscle spasms, contact the office so that we may evaluate you as soon as possible. B. Complications are uncommon, but please contact us if you have any signs or symptoms of: 1. wound infection (fever higher than 102.5 degrees F, redness, separation of wound, drainage, or increasing pain from the incision) 2. blood clots in legs (pain, swelling, redness and warmth in legs) 3. urinary tract infection (fever higher than 102.5 degrees F, burning upon urination or increased frequency of urination) 4. nerve problems (inability to walk on your toes or heels, numbness, loss of bowel or bladder control) 5. any other symptoms that concern you C. Please call the office at if you have any concerns or questions about your operation or recovery. D. No smoking! Smoking drastically decreases the chance of a solid fusion. E. Do not take any anti-inflammatory medications (Indocin, Advil, Motrin, Aspirin, Naprosyn, etc.) as these may inhibit the chance of a solid fusion. Tylenol is okay to take for pain. MANAGING PAIN AFTER SPINAL SURGERY 1. Narcotic medication is intended for short-term use and will be provided for surgical pain. Surgical pain usually lasts for a period of 4-6 weeks. Narcotic medication includes Percocet, Vicodin, Darvocet, Tylenol #3 or Lortab. 2. Longer-term pain is more appropriately treated with non-narcotic medication such as Tylenol ES. 3. Muscle spasm is not appropriately treated with narcotics. Muscle relaxers such as Soma, Flexeril or Skelaxin can be used along with Tylenol ES. 4. Remember that we all live with some "aches and pains". This is not unusual or uncommon after an injury or as we get older. a. Back pain is expected and may include muscle spasms for 4 to 6 weeks after surgery. The pain should gradually improve. If the pain worsens for no apparent reason, please contact the office. b. Intermittent leg pain may also be experienced and should not be concerned about unless it worsens for no apparent reason. If so, please contact the office. 5. We will provide appropriate medication within the normal guidelines of their prescribed use. We will also be very cautious and aware of potential abuse and extended duration of patients' medication needs. a. Pain medications are for your comfort and to assist with sleep and rest so that the tissue can heal. They are not provided in order to return to normal activity and should not be used through the day. To do so or worsening pain at night can result from ongoing tissue damage and development of tolerance to the prescribed medicine. 6. Please allow 2-3 days to process refills. Prescriptions will not be mailed but must be picked up at the office. FOLLOW UP VISIT: Keep your scheduled follow-up appointment. Any questions, please call the office at . Pending Studies at Discharge: No Stand-Alone Forms: [employer], Smoking Cessation Medications and DC Order Prescriptions: New tramadol 50 mg tablet 50 mg PO Q6H PRN (Reason: pain, moderate) Qty: 30 0RF oxycodone 5 mg tablet 5 mg PO Q6H PRN (Reason: pain) Qty: 30 0RF Continued hydralazine 25 mg tablet 25 mg PO TID Qty: 270 0RF Rx Instructions: Take after completion of 10mg tabs budesonide-formoterol [Symbicort] 80-4.5 mcg/actuation HFA aerosol inhaler 2 puff INHALATION Q12H Qty: 10.2 0RF gabapentin 100 mg capsule 200 mg PO TID Qty: 180 0RF loratadine 10 mg tablet 10 mg PO QAM Qty: 90 1RF levothyroxine 75 mcg capsule 75 mcg PO QAM Qty: 30 2RF lansoprazole [Prevacid] 30 mg capsule,delayed release(DR/EC) 30 mg PO BID Qty: 60 2RF famotidine [Pepcid] 20 mg tablet 20 mg PO BID Qty: 60 2RF Vivitrol 380 mg suspension,extended rel recon 380 mg IM .COMPLEX Qty: 1 0RF Hold Instructions: Last dose 06/30/23 per recovery group Rx Instructions: 380 mg intramuscularly monthly; cyclosporine [Restasis] 0.05 % dropperette 1 drp ophthalmic (eye) Q12H Qty: 60 2RF Soothe Lubricant 0.6-0.6 % dropperette 1 drp ophthalmic (eye) QID Qty: 30 0RF aspirin 81 mg tablet 81 mg PO QAM atorvastatin [Lipitor] 40 mg tablet 40 mg PO QPM doxepin 25 mg Capsule 25 mg PO TID hydroxyzine HCl 50 mg Tablet 50 mg PO TID diphenhydramine HCl [Benadryl] 25 mg Capsule 25 mg PO HS PRN (Reason: Sleep) mirtazapine [Remeron] 30 mg Tablet 30 mg PO HS vitamin B complex Capsule 1 cap PO QAM duloxetine [Cymbalta] 60 mg Capsule,Delayed Release(Dr/Ec) 60 mg PO QAM cholecalciferol (vitamin D3) [Vitamin D3] 50 mcg (2,000 unit) Capsule 50 mcg PO QAM azelastine 205.5 mcg (0.15 %) Counselor,Non-Aerosol 2 spray INTRANASAL BID Linzess 145 mcg Capsule 145 mcg PO QPM PRN (Reason: Constipation) Hold Instructions: diarrhea Trintellix 20 mg Tablet 20 mg PO HS acetaminophen [Tylenol Arthritis Pain] 650 mg Tablet Extended Release 1,300 mg PO TID PRN (Reason: Pain) albuterol sulfate 90 mcg/actuation Hfa Aerosol Inhaler 2 puff INHALATION QID PRN (Reason: Wheezing) Budesonide 0.05% With Saline 1 spray intranasal HS ibuprofen 200 mg Capsule 400 mg PO TID amlodipine [Norvasc] 5 mg tablet 10 mg PO QAM metoprolol succinate 25 mg tablet extended release 24 hr 50 mg PO HS lisinopril [Zestril] 40 mg tablet 40 mg PO QAM primidone [Mysoline] 50 mg tablet 50 mg PO BID Discharge Orders: Discharge Order (Routine); Ordered 08/29/23 Ordered By: Tino Soni Admission Data Admit Date/Time: 08/27/23 11:01 Attending Provider: Tino Soni Admit Provider: Tino Soni Primary Care Provider: Era Pimentel Other Providers: Floyd Kee
[2023-08-29] MEDS: NICOTINE 21 MG/24 HR TDSY TD SCH (08:43)
--- NOTE | 2023-08-29 09:27 | Hospitalist Progress Note ---
Date of Service August 29, 2023 Assessment & Plan (1) Neurogenic claudication due to lumbar spinal stenosis: Plan: S/p L5-S1 Decompression and Fusion with Dr. Soni 08/26 - Pain control, dvt proh, bowel regiment and abx per primary team - EBL 50 - hgb 10.6, was 11.4 preoperatively - ?diluation vs acute blood loss anemia with chronic anemia - PT - recommend return home Na low at 133, patient has been hyponatremic in the past. asymptomatic. Now 138 (2) Benign essential hypertension: Plan: Continue amlodipine, hydralazine, and metoprolol Continue Lisinopril as BP allows (3) Anxiety: Plan: Continue doxepin, duloxetine, hydroxyzine, mirtazapine and Trintellix (4) Tobacco use disorder: Plan: smokes 1/2 ppd continue nicotine patch Recommend sensation (5) SUAD (obstructive sleep apnea): Plan: Patient denies CPAP machiene use at home (6) Diabetes mellitus, type 2: Plan: Reports has been diet controlled since her gastric bypass surgery. Reports A1c usually runs around 6 HgbA1c: 7.8 - received insulin sliding scale while inpatient - recommend further discussion with PCP for further management Plan Dispo: stable,agree with plan to discharge Thank you for allowing us to participate in the care of this patient, please reach out with any questions or concerns Admission and Anticipated Discharge Date Admission Date: August 27, 2023 Subjective Patient feeling well today, has ambulated in the wahl. Discussed elevated HgbA1c - encouraged further discussion with PCP regarding this. Pain is well controlled, has had a BM. Review of Systems Review of Systems: All systems reviewed & are unremarkable except as noted in Subjective Physical Exam Physical Exam: General: NAD, VS as above Resp: normal respiratory effort, lungs clear to auscultation CV: RRR, no murmur, Abd: normal bowel sounds, non tender, no hepatosplenomegaly Extremities: Moves all extremities, no edema Neuro: A&O x3, Results & Data Results & Data Vital Signs (Past 12 Hours) Vital Signs Temp Pulse Resp BP Pulse Ox O2 Del Method 08/29/23 07:27 36.9 C 73 18 108/69 97 Room Air Laboratory Results BMP reviewed PG Care Time/CCT Total # of Minutes Spent Total Time Spent with Patient: Total time spent is greater than 50% in coordination of care (as documented) at patient's floor/unit and/or counseling patient: Coding Level of Care Code 85797 SUB INP/OBS CARE MIN Diagnoses Neurogenic claudication due to lumbar spinal stenosis M48.062 Benign essential hypertension I10 Anxiety F41.9 Tobacco use disorder F17.200 SUAD (obstructive sleep apnea) G47.33 Diabetes mellitus, type 2 E11.9
== END 2023-08-29 12:26 | disposition home or self-care (01) | DRG 455 ==
LOC: ASU 09:20 → 3W 11:01
DX: F17.210 Nicotine dependence, cigarettes, uncomplicated; E11.9 Type 2 diabetes mellitus without complications; Z79.890 Hormone replacement therapy; K58.9 Irritable bowel syndrome, unspecified; Z79.82 Long term (current) use of aspirin; Z91.048 Other nonmedicinal substance allergy status; Z88.6 Allergy status to analgesic agent; M51.16 Intervertebral disc disorders with radiculopathy, lumbar region; Z79.899 Other long term (current) drug therapy; E78.5 Hyperlipidemia, unspecified; Z79.51 Long term (current) use of inhaled steroids; F10.21 Alcohol dependence, in remission; M48.062 Spinal stenosis, lumbar region with neurogenic claudication; E03.9 Hypothyroidism, unspecified; M79.7 Fibromyalgia; I10 Essential (primary) hypertension; Z88.0 Allergy status to penicillin; G47.33 Obstructive sleep apnea (adult) (pediatric); Z88.2 Allergy status to sulfonamides; J31.0 Chronic rhinitis; K21.9 Gastro-esophageal reflux disease without esophagitis; F41.9 Anxiety disorder, unspecified; Z98.84 Bariatric surgery status; Z88.8 Allergy status to other drugs, medicaments and biological substances